=== PATIENT | female | born 1945 | race Caucasian/White ===

== ENCOUNTER 2016-05-18 19:07 | Inpatient (IN) | payer MEDICARE, OTHER ==
[~2016-05-18] VITALS: Ht 157.5 cm; Wt 35.8 kg
[~2016-05-18 19:07] MED LIST: ALBU2.5V5 NEB; ASPI325T4 PO; ASPI81TA9 PO; BUDE10.2 IH; CALC1TAB75 PO; FERR134T PO; FERR325T31 PO; HYDR-2762 PO; LEVO250T25 PO; MULT-60 PO; POTA10TA12 PO; PRED20TA PO; TIOT18CA IH; VENTOLIN HFA18 GM INH
[2016-05-18] MEDS ORDERED: methylPREDNISolone SOD SUCC PF 125 MG/2 ML VIAL. IV ONE (19:45)
[2016-05-18] MEDS ORDERED: ALBUTEROL SULFATE 2.5 MG/3 ML NEBU. NEB ONE (20:00)
--- NOTE | 2016-05-18 20:03 | PHYS DOC ---
Past Medical History Past Medical History: COPD Additional Past Medical Histor: OSTEOPOROSIS, EMPHYSEMA, Past Surgical History: Other Additional Past Surgical Histo: HIP FRACTURE, ANURYSM COILS, Alcohol Use: None Drug Use: Opiates Adult General Chief Complaint Chief Complaint: LOWER BACK PAIN OR INJURY HPI HPI Patient is a 71 year old female presents with back pain after reaching over to get something out of the fridge yesterday. Reports she felt a pop and then pain started. Denies fall, numbness, tingling, incontinence, focal weakness, or deficits. Has been taking her Hydrocodone 7.5mg at home with moderate relief but is concerned because not getting better. Review of Systems Review of Systems Constitutional: Denies fever or chills Eyes: Denies change in visual acuity, redness, or eye pain [] HENT: Denies nasal congestion or sore throat Respiratory: Denies new cough or shortness of breath. Reports new wheezing over last few days. Cardiovascular: No additional information not addressed in HPI GI: Denies abdominal pain, nausea, vomiting, bloody stools or diarrhea : Denies dysuria or hematuria Musculoskeletal: Mid and low back pain for 2-3 days Integument: Denies rash or skin lesions Neurologic: Denies headache, focal weakness or sensory changes Endocrine: Denies polyuria or polydipsia [] Current Medications Current Medications Current Medications Medications (Trade) Dose Ordered Sig/Carlos Start Time Stop Time Status Last Admin Dose Admin Acetaminophen/ Hydrocodone Bitart (Lortab 7.5/325) 1 tab 1X ONCE 05/18/16 20:45 05/18/16 20:46 DC 05/18/16 20:45 1 TAB Albuterol Sulfate (Ventolin Neb Soln) 2.5 mg 1X ONCE 05/18/16 20:00 05/18/16 20:01 DC 05/18/16 20:25 2.5 MG Fentanyl Citrate (Fentanyl 2ml Vial) 25 mcg 1X ONCE 05/18/16 21:30 05/18/16 21:31 DC 05/18/16 21:12 25 MCG Info (Do NOT chart on this entry -- for MONITORING) 1 each PRN DAILY PRN 05/18/16 21:15 05/19/16 13:53 DC Iohexol (Omnipaque 300 Mg/ml) 75 ml 1X ONCE 05/18/16 21:30 05/18/16 21:31 DC 05/18/16 22:00 75 ML Methylprednisolone Sodium Succinate (Solu-Medrol 125mg Vial) 125 mg 1X ONCE 05/18/16 19:45 05/18/16 19:49 DC 05/18/16 19:45 125 MG Allergies Allergies Physical Exam Physical Exam Constitutional: Frail, thin, and in mild distress. HENT: Normocephalic, atraumatic, bilateral external ears normal, oropharynx moist, no oral exudates, nose normal. [] Eyes: PERRLA, EOMI, conjunctiva normal, no discharge. [] Neck: Normal range of motion, no tenderness, supple, no stridor. Cardiovascular:Heart rate regular rhythm, tachycardia, no murmur Lungs & Thorax: Inspiratory wheezes throughout, accessory muscle use. Abdomen: Bowel sounds normal, soft, no tenderness, no masses, no pulsatile masses. Skin: Warm, dry, no erythema, no rash. Back: Midline tenderness thoracic and lumber Extremities: No tenderness, no cyanosis, no clubbing, ROM intact, no edema. Neurologic: Alert and oriented X 3, normal motor function, normal sensory function, no focal deficits noted. Psychologic: Affect normal, judgement normal, mood normal. Current Patient Data Vital Signs Vital Signs Date Time Temp Pulse Resp B/P Pulse Ox O2 Delivery O2 Flow Rate FiO2 05/18/16 23:02 124 28 171/81 97 Nasal Cannula 2.5 05/18/16 19:20 98.1 98.1 Lab Values Laboratory Tests Test 05/18/16 20:07 05/18/16 20:30 White Blood Count 13.1x10^3/uL (4.0-11.0) H Red Blood Count 4.12x10^6/uL (3.50-5.40) Hemoglobin 10.5g/dL (12.0-15.5) L Hematocrit 33.3% (36.0-47.0) L Mean Corpuscular Volume 81fL (79-100) Mean Corpuscular Hemoglobin 25pg (25-35) Mean Corpuscular Hemoglobin Concent 32g/dL (31-37) Red Cell Distribution Width 16.2% (11.5-14.5) H Platelet Count 618x10^3/uL (140-400) H Neutrophils (%) (Auto) 86% (31-73) H Lymphocytes (%) (Auto) 6% (24-48) L Monocytes (%) (Auto) 7% (0-9) Eosinophils (%) (Auto) 0% (0-3) Basophils (%) (Auto) 1% (0-3) Neutrophils # (Auto) 11.3x10^3uL (1.8-7.7) H Lymphocytes # (Auto) 0.8x10^3/uL (1.0-4.8) L Monocytes # (Auto) 1.0x10^3/uL (0.0-1.1) Eosinophils # (Auto) 0.0x10^3/uL (0.0-0.7) Basophils # (Auto) 0.1x10^3/uL (0.0-0.2) Segmented Neutrophils % 91% (35-66) H Lymphocytes % 4% (24-48) L Monocytes % 1% (0-10) Basophils % 2% (0-3) Metamyelocytes % 1% (0-0) H Myelocytes % 1% (0-0) H Platelet Estimate Increased (ADEQUATE) Polychromasia Slight Hypochromasia Slight Anisocytosis Slight Sodium Level 141mmol/L (136-145) Potassium Level 3.9mmol/L (3.5-5.1) Chloride Level 98mmol/L (98-107) Carbon Dioxide Level 35mmol/L (21-32) H Anion Gap 8 (6-14) Blood Urea Nitrogen 17mg/dL (7-20) Creatinine 0.5mg/dL (0.6-1.0) L Estimated GFR (Cockcroft-Gault) 122.3 BUN/Creatinine Ratio 34 (6-20) H Glucose Level 118mg/dL (70-99) H Calcium Level 9.7mg/dL (8.5-10.1) Total Bilirubin 0.3mg/dL (0.2-1.0) Aspartate Amino Transferase (AST) 22U/L (15-37) Alanine Aminotransferase (ALT) 21U/L (14-59) Alkaline Phosphatase 98U/L (46-116) Creatine Kinase 57U/L (26-192) Creatine Kinase MB (Mass) 2.0ng/mL (0.0-3.6) Creatine Kinase MB Relative Index % (0-4) Troponin I Quantitative < 0.017ng/mL (0.000-0.055) JT-Die-K-Type Natriuretic Peptide 1171pg/mL (0-124) H Total Protein 8.0g/dL (6.4-8.2) Albumin 3.6g/dL (3.4-5.0) Albumin/Globulin Ratio 0.8 (1.0-1.7) L Influenza Type A Antigen Negative (NEGATIVE) Influenza Type B Antigen Negative (NEGATIVE) D-Dimer (Sirena) 2.31ug/mlFEU (0.00-0.50) H Laboratory Tests 05/18/16 20:07 Laboratory Tests 05/18/16 20:07 EKG EKG [] Radiology/Procedures Radiology/Procedures [] Impressions: 1. COPD Exacerbation 2. Acute Compression Fracture L2 Course & Med Decision Making Course & Med Decision Making Pertinent Labs and Imaging studies reviewed. (See chart for details) 194-Patient wheezing on exam. On her home O2 at 3LNC with O2 Sat 97%, HR 120' s. Denies any shortness of air, chest pain. Reports she just finished steroids and antibiotic that her doctor put her on a few weeks ago for her lungs but unable to verbalize diagnosis at that time. Informed patient of plan of care that moving to new room out of [facility] for further investigation of wheezing, tachycardia Patient agreed with plan of care. Further evaluation revealed WBC elevated at 13 wihtout bandemia, Chest Xray sowed findings consistent with COPD and did not show pneumonia. D Dimer elevated, CT Chest negative for PE. Patient given IV Solumedrol and nebulizer and continues to have wheezes, accessory muscle use, and heart rate continues to be elevated 110-120. CT of thoracic and lumber revealed acute compression fracture of L2. Patient received pain medication and comfortable at this time. Spoke with Dr. Bueno regarding admission for COPD exacerbation, patient accepted and IV antibiotics will be initiated per her request. No recent hospitalizations or procedures, will cover for CAP and continue nebs, steroids, and monitoring. Dragon Disclaimer Dragon Disclaimer This electronic medical record was generated, in whole or in part, using a voice recognition dictation system. Departure Departure Impression: Primary Impression: COPD exacerbation Additional Impression: Compression fracture of L2 lumbar vertebra Disposition: ADMITTED INPATIENT Admitting Physician: Tanesha Bueno Condition: STABLE Referrals: TRICIA PERRY MD (PCP) Scripts Doxycycline Monohydrate 100 Mg Capsule1 Cap PO BID #20 CAP Prov:TRICIA PERRY MD 05/19/16 Prednisone 50 Mg Afnoxn33 Mg PO DAILY #8 TAB Prov:TRICIA PERRY MD 05/19/16 Problem Qualifiers Additional Impression: Compression fracture of L2 lumbar vertebra Encounter type: initial encounter Fracture type: closed Qualified Code: S32.020A - Wedge compression fracture of second lumbar vertebra, initial encounter for closed fracture TROY ISAAC APRN May 18, 2016 20:03
[2016-05-18 20:22] LABS: BASO # 0.1 x10^3/uL (0.0-0.2); BASO % 1 % (0-3); EOS % 0 % (0-3); HEMATOCRIT 33.3 % (36.0-47.0); HEMOGLOBIN 10.5 g/dL (12.0-15.5); LYMPH # 0.8 x10^3/uL (1.0-4.8); LYMPH % 6 % (24-48); MEAN CORPUSCULAR HEMOGLOBIN 25 pg (25-35); MEAN CORPUSCULAR HGB CONC 32 g/dL (31-37); MEAN CORPUSCULAR VOLUME 81 fL (79-100); MONO % 7 % (0-9); NEUT % 86 % (31-73); PLATELET COUNT 618 x10^3/uL (140-400); RED BLOOD COUNT 4.12 x10^6/uL (3.50-5.40); RED CELL DISTRIBUTION WIDTH 16.2 % (11.5-14.5); WHITE BLOOD COUNT 13.1 x10^3/uL (4.0-11.0)
[2016-05-18 20:24] LABS: CALCIUM 9.7 mg/dL (8.5-10.1); CREATININE 0.5 mg/dL (0.6-1.0); GFR 122.3; POTASSIUM 3.9 mmol/L (3.5-5.1)
[2016-05-18 20:30] LABS: ALBUMIN 3.6 g/dL (3.4-5.0); ALBUMIN/GLOBULIN RATIO 0.8 (1.0-1.7); TOTAL BILIRUBIN 0.3 mg/dL (0.2-1.0)
[2016-05-18 20:32] LABS: OBC FLU VALID
[2016-05-18 20:38] LABS: CREATINE KINASE 57 U/L (26-192)
[2016-05-18] MEDS ORDERED: HYDROCODONE/APAP 7.5/325MG TABLET. PO ONE (20:45)
[2016-05-18 21:00] LABS: % BASOS 2 % (0-3); ANISOCYTOSIS SLIGHT; HYPOCHROMIA SLIGHT; PLT ESTIMATE INCREASED (ADEQUATE); POLYCHROMASIA SLIGHT
[2016-05-18] MEDS ORDERED: CONTRAST GIVEN MC PRN (21:15)
[2016-05-18] MEDS ORDERED: FENTANYL PF 100 MCG/2 ML VIAL. IV ONE ×2 (21:30→23:30)
[2016-05-18] MEDS ORDERED: IOHEXOL 300 MG/ML 75 ML VIAL IV ONE (21:30)
--- NOTE | 2016-05-18 21:42 | RAD ---
PROCEDURE CT scan of the thoracic and lumbar spine without contrast 05/18/2016 HISTORY Severe mid and low back pain. TECHNIQUE Unenhanced contiguous 0.625 millimeter axial sections were obtained through the thoracic and lumbar spine. 3 millimeter reconstructed sagittal, axial and coronal images were obtained. One or more of the following individualized dose reduction techniques were utilized for this study: 1. Automated exposure control. 2. Adjustment of the mA and/or kV according to patient size. 3. Use of iterative reconstruction technique. FINDINGS Sagittal and coronal reconstructed images demonstrate mild S-shaped curvature of the thoracolumbar spine. There is increased kyphosis of the thoracic spine. Diffuse osteopenia of the visualized bony structures is noted. Old compression deformity of the superior endplate of the T11 vertebral body and the inferior endplate of the T12 vertebral body is seen. No retropulsion of bone fragments into the central spinal canal is seen. No acute fracture or subluxation of the thoracic vertebrae is seen. Degenerative changes consisting of vertebral endplate sclerosis and minimal to mild anterior and vertebral body osteophyte formation are seen involving the mid and lower thoracic disc spaces. Extensive atherosclerotic calcification of the thoracic aorta and its branches is noted. There is a large hiatal hernia. Severe emphysematous changes are seen involving both lungs. Apical pleural thickening and probable scarring is seen involving right upper lobe. Old appearing compression fracture is seen involving the superior endplate of the L1 vertebral body. No retropulsion of bone fragments into the central spinal canal is seen. An old appearing compression fracture of the L5 vertebral body is seen. No retropulsion of bone fragments is noted. An acute compression fracture is seen involving the L2 vertebral body. This vertebral body has lost approximately 40 percent of its normal height. No retropulsion of bone fragments into the central spinal canal is seen. No additional compression fracture of the lumbar vertebrae is seen. Degenerative changes are seen involving the facet joints of the mid and lower lumbar spine. Atherosclerotic calcification of the abdominal aorta and its branches is noted. IMPRESSION An acute compression fracture is seen involving the L2 vertebral body. No retropulsion of bone fragments into the central spinal canal is seen. Electronically signed by: Tariq Bonds MD (May 18, 2016 21:40:50)
--- NOTE | 2016-05-18 22:22 | RAD ---
PROCEDURE CTA of the chest with contrast (pulmonary embolism protocol) 05/18/2016 HISTORY Shortness of breath and cough with elevated D-dimer. TECHNIQUE After the intravenous administration of 75 cc of Omnipaque 300, contiguous, 0.625 millimeter axial sections were obtained through the chest. 2 millimeter reconstructed axial and 3D MIP sagittal and coronal reconstructed images were obtained. One or more of the following individualized dose reduction techniques were utilized for this study: 1. Automated exposure control. 2. Adjustment of the mA and/or kV according to patient size. 3. Use of iterative reconstruction technique. FINDINGS No filling defect is seen within the major branches of either pulmonary artery. Atherosclerotic calcification of the thoracic aorta is seen. The thoracic aorta is tortuous but tapers normally. The heart is borderline enlarged. There is a large sliding hiatal hernia. Apical pleural thickening and scarring is seen involving the right upper lobe. Severe emphysematous changes are seen involving both lungs. Areas of probable scarring are seen scattered throughout the left upper lobe. No area of consolidation is seen. No pneumothorax or pleural effusion is noted. Calcified granulomas are seen involving both lungs. A 6 millimeter partially calcified granuloma is seen involving the right middle lobe. Several low-attenuation lesions are seen scattered throughout the liver which measure 1 centimeter to 2.5 centimeters in size. They are felt to most likely represent hepatic cysts IMPRESSION There is no CT evidence of pulmonary embolism. Electronically signed by: Tariq Bonds MD (May 18, 2016 22:20:28)
[2016-05-18] MEDS ORDERED: AZITHRMYCN 500MG IVPB FOR OMNI 250 ML IV ONE (23:30)
[2016-05-18] MEDS ORDERED: ALBUTEROL SULFATE 2.5 MG/3 ML NEBU. NEB PRN (23:30)
[2016-05-18] MEDS ORDERED: FENTANYL PF 100 MCG/2 ML VIAL. IV PRN (23:30)
[2016-05-18] MEDS ORDERED: ONDANSETRON PF 4 MG/2 ML VIAL. IV PRN (23:30)
[2016-05-18] MEDS ORDERED: IV NORMAL SALINE 1000ML BAG 1,000 ML IV ONE (23:30)
[2016-05-18] MEDS ORDERED: CEFTRIAXONE 1GM IVPB FOR OMNI 50 ML IV ONE (23:45)
[2016-05-19 01:45] VITALS: BP 143/73
--- NOTE | 2016-05-19 06:34 | EKG ---
[facility] [address] [place] [address] Test Date: 2016-05-18 Test Time: 19:59:53 Pat Name: GURWINDER GOLDSTEIN Department: Room: 536 1 Gender: F Non Morse Intercept Technician: : 1945 Requested By: TROY ISAAC Order Number: [id number] Reading MD: Vidal Cason Measurements Intervals [place] Rate: 126 P: 76 [place]: 98 QRS: 44 QRSD: 88 T: 78 QT: 324 QTc: 470 Interpretive Statements SINUS TACHYCARDIA RIGHT ATRIAL ENLARGEMENT NONSPECIFIC ST-T WAVE CHANGES. 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
[2016-05-19 07:00] VITALS: BP 148/82
--- NOTE | 2016-05-19 07:54 | RAD ---
Exam performed: Single view chest. History: Shortness of breath today, history of COPD. Date of service: 05/18/16. Comparison: 01/11/15. Single AP upright portable view chest findings: Heart size is within limits of normal. Ectatic tortuous aorta with atheromatous calcification of the aortic knob. There is a hiatal hernia. Lungs are well expanded and clear. Prominent interstitial markings are seen in both lungs similar to previous study consistent with fibrotic changes. No focal infiltrates, effusion or pneumothorax seen. Impression: Stable and chronic fibrotic changes. No acute findings noted
--- NOTE | 2016-05-19 10:08 | PDOC ---
Provider Note Provider Note Pt seen.H&P dictated. #[id number]. pt wanting to go home ,says feels better, will give back brace to her for L2 compression fracture TRICIA PERRY MD May 19, 2016 10:08
[2016-05-19] MEDS ORDERED: DOXY100C14 PO (10:10)
[2016-05-19] MEDS ORDERED: PRED50TA PO (10:10)
[2016-05-19 11:00] VITALS: BP 146/79
[2016-05-19] MEDS ORDERED: PREDNISONE 20 MG TABLET PO SCH (11:00)
[2016-05-19] MEDS ORDERED: ASPIRIN ENTERIC COATED 81 MG TABLET.DR. PO SCH (11:00)
[2016-05-19] MEDS ORDERED: FERROUS SULFATE 325 MG TABLET PO SCH (11:00)
--- NOTE | 2016-05-19 12:19 | HP ---
ADMIT DATE: 05/19/2016 REASON FOR ADMISSION TO THE HOSPITAL: Chronic obstructive pulmonary disease with exacerbation, new L2 compression fracture. HISTORY OF PRESENT ILLNESS: The patient is a 71-year-old female, the patient known to me. She has a history of severe COPD. She is on chronic oxygen use at home and nebulizer. She came with shortness of breath and wheezing, came to the Emergency Room, had a D-dimer was slightly elevated at 2.1. CT angiogram was negative for PE. Chest x-ray negative for pneumonia, white count was elevated to 13 and the patient was admitted, was given IV Solu-Medrol, Zithromax and Rocephin. The patient says she is feeling better. She is anxious to go home. She denies any pain. The patient had a CT of the lumbar and thoracic spine last night shows L2 compression fracture which is new. The patient denies any pain. She noticed some pain couple of days ago in low back. PAST MEDICAL HISTORY: Anemia, osteoporosis, emphysema, COPD, continues to smoke, had a history of bone marrow biopsy, EGD, colonoscopy for anemia. PAST SURGICAL HISTORY: Had a fracture, had a brain aneurysm, had a coil placed at the . ALLERGIES: SHE CANNOT TAKE MRI BECAUSE OF THE BRAIN COIL FOR THE ANEURYSM, OTHERWISE NO ALLERGIES TO MEDICATIONS. MEDICATIONS AT HOME: She is on Lortab 5/325 four times daily, oxygen 2-3 liters daily. She is on Symbicort 2 puffs twice a day, Spiriva 1 daily, Ventolin 2 puffs 4 times daily, prednisone on and off, calcium, vitamin D and she was supposed to be on Boniva, but she refuses. PERSONAL HISTORY: Smokes for all her life, most of the life, she started 22, she still smokes. Denies alcohol or street drugs. SOCIAL HISTORY: The patient ambulates with the walker and oxygen and she lives with her daughter. FAMILY HISTORY: Unremarkable. PHYSICAL EXAMINATION: GENERAL: The patient looks frail and sick. VITAL SIGNS: Temperature 98, pulse 118, respirations 20, blood pressure is 133/73, 96% on 2.5 liters. HEENT: Head is atraumatic. Pupils, equal. Oral cavity: Dentures. NECK: Supple. CHEST: COPD pattern. CARDIOVASCULAR: S1, S2. No murmurs. LUNGS: Diminished breath sounds, occasional wheezing. The patient has a kyphosis of the spine. ABDOMEN: Soft, no mass palpable. EXTERNAL GENITALIA: No [place]. RECTAL: Deferred. EXTREMITIES: No calf tenderness, no edema. Pulses 1+. LABORATORY DATA: Shows a white count of 13, hemoglobin 10, platelets 618. Electrolytes show sodium 141, potassium 4.0, chloride 98, bicarbonate 35, BUN 7, creatinine 0.5, glucose 118. LFT was normal. BNP 1171, albumin 3.6, troponin was negative. D-dimer was 2.3. Influenza A and B was negative. CT angiogram of the chest was negative for pulmonary embolism. Chest x-ray, chronic fibrotic changes. X-ray of the lumbar spine shows L2 compression fracture. FINAL IMPRESSION: 1. Chronic obstructive pulmonary disease with acute exacerbation. 2. Acute L2 compression fracture. 3. Osteoporosis. 4. Kyphosis. 5. Chronic obstructive pulmonary disease with hypoxia, on oxygen. 6. Chronic smoker. 7. Protein-calorie malnutrition, moderate. 8. Smoking addiction. PLAN: At this time, was admitted to the hospital. The patient is anxious to go home and she was given prescription for doxycycline 100 mg twice daily, prednisone tapering doses and she has oxygen breathing machine at home and follow up in the office. The patient is up to date on flu and pneumonia shots, again smoking counseling was done. TRICIA PERRY MD DR: IVETTE/brandon JOB#: [id number] / [id number] DEBORA
[2016-05-19] MEDS ORDERED: HYDROCODONE/APAP 7.5/325MG TABLET. PO SCH (13:00)
[2016-05-19] MEDS ORDERED: ALBUTEROL SULFATE 2.5 MG/3 ML NEBU. NEB SCH (13:00)
--- NOTE | 2016-05-20 01:13 | ACF ---
Admission Forms Criteria COPD Clinical Indications for Admission to Inpatient Care (Place 'X' for any and all applicable criteria): Admission is indicated for ANY ONE of the following (1)(2)(3): [ ]I. Acute exacerbation by high-risk comorbidity (e.g., pneumonia, dysrhythmia, heart failure, pleural effusion, pneumothorax) or severe underlying COPD (e.g., steroid dependent) [ ]II. Inpatient admission required rather than observation care (see Chronic Obstructive Pulmonary Disease: Observation Care) because of ANY ONE of the following: [ ]a) New or pre-existing signs or symptoms of COPD (eg, dyspnea or Tachypnea at rest or with minimal activity) that persist despite outpatient and observation care treatment [ ]b) New-onset hypoxemia (room air SaO2 less than 90%, PO2 less than 60 mm Hg (8.0 kPa)) that persists despite outpatient and observation care treatment [ ]c) Worsening of pre-existing hypoxemia (eg, new or increased requirement for supplemental oxygen to maintain oxygenation at baseline level) that persists despite outpatient and observation care treatment, with oxygen treatment needs performable only in acute inpatient setting [ ]d) Hypercarbia (PCO2 greater than 40 mm Hg (5.3 kPa))-induced respiratory acidosis (pH less than 7.35) that persists despite outpatient and observation care treatment [ ]e) Supplemental oxygen or respiratory treatments for over 24 hours that are performable only in acute inpatient setting [ ]f) Chest tube placement with active evacuation (e.g., suction, drainage) (5) [ ]g) Other condition, treatment or monitoring requiring inpatient admission [ ]III. Planned invasive surgical or diagnostic procedures requiring acute- care hospitalization [ ]IV. Acute respiratory failure (e.g., uncompensated hypercarbia, severe hypoxemia) [X]V. Severe comorbid condition (e.g., severe steroid myopathy, acute vertebral fracture) that has acutely worsened pulmonary function [ ]. Confusion state, lethargy, obtundation, stupor or coma Extended stay beyond goal length of stay may be needed for (31)(32): [ ]a ) Respiratory Failure. [ ]b) Severe or persisting hypoxemia or hypercarbia [ ]c) Severe or persistent dyspnea [ ]d) Comorbidities (e.g. chronic heart failure, atrial fibrillation with rapid response, pneumonia) [ ]e) Malnutrition The original [facility] content created by [facility] has been revised. The portions of the content which have been revised are identified through the use of italic text or in bold, and [facility] has neither reviewed nor approved the modified material. All other unmodified content is copyright [facility]. Please see references footnoted in the original [facility] edition 2016 Admission Criteria Met?: Yes TAMMY HASSAN May 20, 2016 01:13
--- NOTE | 2016-05-22 10:16 | PDOC ---
Provider Note Provider Note Discharge summary dictated. #[id number] TRICIA PERRY MD May 22, 2016 10:15
--- NOTE | 2016-05-22 20:48 | DS ---
DATE OF DISCHARGE: 05/19/2016 REASON FOR ADMISSION TO THE HOSPITAL: COPD with acute exacerbation. CONSULTATIONS: None. PROCEDURES DONE: None. HOSPITAL COURSE: The patient is a 71-year-old female with chronic COPD on home oxygen, continues to smoke and also osteoporosis. She came with shortness of breath with wheezing, was given IV Solu-Medrol, antibiotics and the patient was feeling better. She went to go home the next day, the patient was discharged at patient's request with doxycycline and oral prednisone. FINAL DIAGNOSES: 1. Chronic obstructive pulmonary disease with exacerbation. 2. Chronic chronic obstructive pulmonary disease with hypoxia, home oxygen. 3. Chronic osteoporosis. 4. Tobacco addiction and the patient was discharged. Tobacco counseling was done and the patient was discharged on oral antibiotics and steroids, she has oxygen at home and breathing machine at home. The patient was discharged on patient's request. TRICIA PERRY MD DR: IVETTE/brandon JOB#: [id number] / [id number] DEB[place]A
== END 2016-05-19 13:45 | disposition home or self-care (01) | DRG 543 ==
LOC: ER 19:07 → 5 NORTH 23:28
PROVIDERS: ADMIT Internal Medicine; ATTEND Internal Medicine
DX: M80.08XA Age-related osteoporosis with current pathological fracture, vertebra(e), initial encounter for fracture (principal); J44.1 Chronic obstructive pulmonary disease with (acute) exacerbation; E44.0 Moderate protein-calorie malnutrition; Z68.1 Body mass index [BMI] 19.9 or less, adult; J96.10 Chronic respiratory failure, unspecified whether with hypoxia or hypercapnia; M81.0 Age-related osteoporosis without current pathological fracture; F17.200 Nicotine dependence, unspecified, uncomplicated; Z99.81 Dependence on supplemental oxygen; Z71.6 Tobacco abuse counseling; M40.209 Unspecified kyphosis, site unspecified
CPT/HCPCS: 36415; 71010; 71275; 72128; 72131; 80053; 82553; 83880; 84484; 85007; 85027; 85379; 87040; 87804; 93005; 94250; 94640; 94760; 96365; 96375; 96376; J0690; J2930; J3010; J7030; J7512; Q9967; 99285-25

== ENCOUNTER 2016-06-11 22:02 | Inpatient (IN) | payer MEDICARE ==
[~2016-06-11] VITALS: Ht 157.5 cm; Wt 31.8 kg
[~2016-06-11 22:02] MED LIST changes: +DOXY100C14 PO; +PRED50TA PO
--- NOTE | 2016-06-11 22:38 | ED.ADGEN ---
Past Medical History Past Medical History: COPD Additional Past Medical Histor: OSTEOPOROSIS, EMPHYSEMA, L2 FX Past Surgical History: Other Additional Past Surgical Histo: HIP FRACTURE, ANURYSM COILS, Alcohol Use: None Drug Use: Opiates Adult General Chief Complaint Chief Complaint: MULTIPLE COMPLAINTS HPI HPI Patient is a 71 year old woman, history of COPD on 2 L nasal cannula as needed , osteoporosis, history of L2 fracture with chronic back pain, who presents to the emergency department with her daughter with multiple complaints. Patient's has been using her oxygen all day today, which is uncommon, has been experiencing cough, although the patient states it's no more than her usual cough. Pressure of white sputum. Denies fevers at home, complaining of some chills. Denies any chest pain, states he has had increased work of breathing today, denies any abdominal pain, any nausea, vomiting, diarrhea. Normal appetite per report, denies any urinary complaints. Patient's daughter states that the patient has been acting "out of her head". States that her patient was "pulling her oxygen tubing trying to pull it apart stating "I want to open these chips". She was also saying that "my cat is pooping from its face"." At this time the patient is alert and oriented 4 in the emergency department. Positive for sick contacts among her grandson who had a viral illness recently. No recent travel or surgery, history of DVT or PE. Patient has been compliant with all medications per her report and her daughter's. No weakness, numbness or tingling, no headache, no vision changes, no abnormalities in speech or cognition aside from reported by patient's daughter. Patient with tachycardia, heart rate in the 1 teens, oxygen saturation in the mid 90s on 2 L nasal cannula , respiratory rate is 22, unlabored, speaking full sentences. Patient is afebrile in the ED. Review of Systems Review of Systems Constitutional: Denies fevers, complaining of chills. Eyes: Denies change in visual acuity. [] HENT: No nasal congestion, complaining of sore throat. Respiratory: Cough, productive of white sputum, shortness of breath. Cardiovascular: Denies chest pain or edema. [] GI: Denies abdominal pain, nausea, vomiting, bloody stools or diarrhea. [] : Denies dysuria. [] Musculoskeletal: Denies back pain or joint pain. [] Integument: Denies rash. [] Neurologic: Denies headache, focal weakness or sensory changes. [Altered mental status.] Endocrine: Denies polyuria or polydipsia. [] Lymphatic: Denies swollen glands. [] Psychiatric: Denies depression or anxiety. [] Current Medications Current Medications Current Medications Medications (Trade) Dose Ordered Sig/Carlos Start Time Stop Time Status Last Admin Dose Admin Albuterol/ Ipratropium (Duoneb) 3 ml 1X ONCE 06/11/16 23:30 06/11/16 23:31 DC 06/11/16 23:26 3 ML Methylprednisolone Sodium Succinate (Solu-Medrol 125mg Vial) 125 mg 1X ONCE 06/11/16 23:30 06/11/16 23:31 DC 06/11/16 23:32 125 MG Vancomycin HCl (Vanco Per Pharmacy) 1 each PRN DAILY PRN 06/11/16 23:15 UNV Allergies Allergies Allergies Coded Allergies Type Severity Reaction Last Updated Verified No Known Medication Allergies Allergy Unknown 05/19/16 Yes Uncoded Allergies Type Severity Reaction Last Updated Verified MRI Adverse Reaction Severe PT HAS ANEURYSM COIL 05/19/16 Physical Exam Physical Exam Constitutional: Well developed, well nourished, no acute distress, non-toxic appearance. [] Nasal cannula in place. HENT: Normocephalic, atraumatic, bilateral external ears normal, oropharynx moist, no oral exudates, nose normal. [] Eyes: PERRLA, EOMI, conjunctiva normal, no discharge. [] Neck: Normal range of motion, no tenderness, supple, no stridor. [] Cardiovascular: Tachycardic, S1, S2, no rubs or gallops, soft heart sounds. Lungs & Thorax: Patient was extremely diminished breath sounds throughout, no wheezing, rhonchi or rales identified, nasal cannula is in place, no chest wall crepitus or tenderness, patient is extremely kyphotic. [] Abdomen: Bowel sounds normal, soft, no rebound, rigidity, no guarding, no tenderness, no masses, no pulsatile masses. [] Skin: Warm, dry, no erythema, no rash. [] Back: No tenderness, no CVA tenderness. [] Extremities: No tenderness, no cyanosis, no clubbing, ROM intact, no edema. Muscle wasting. Negative Homans sign. [] Neurologic: Alert and oriented X 3, normal motor function, normal sensory function, no focal deficits noted. [] Psychologic: Affect normal, judgement normal, mood normal. [] Current Patient Data Vital Signs Vital Signs Date Time Temp Pulse Resp B/P Pulse Ox O2 Delivery O2 Flow Rate FiO2 06/11/16 23:28 95 Nasal Cannula 2.0 06/11/16 23:19 110 31 113/93 06/11/16 22:05 98.0 98.0 Lab Values Laboratory Tests Test 06/11/16 22:20 06/11/16 22:30 O2 Saturation 90% (92-99) L Arterial Blood pH 7.49 (7.35-7.45) H Arterial Blood pCO2 at Patient Temp 57mmHg (35-46) H Arterial Blood pO2 at Patient Temp 60mmHg (65-108) L Arterial Blood HCO3 43mmol/L (21-28) H Arterial Blood Base Excess 18mmol/L (-3-3) H FiO2 28.0 White Blood Count 15.4x10^3/uL (4.0-11.0) H Red Blood Count 3.92x10^6/uL (3.50-5.40) Hemoglobin 8.4g/dL (12.0-15.5) L Hematocrit 28.8% (36.0-47.0) L Mean Corpuscular Volume 74fL (79-100) L Mean Corpuscular Hemoglobin 22pg (25-35) L Mean Corpuscular Hemoglobin Concent 29g/dL (31-37) L Red Cell Distribution Width 21.0% (11.5-14.5) H Platelet Count 564x10^3/uL (140-400) H Neutrophils (%) (Auto) 81% (31-73) H Lymphocytes (%) (Auto) 8% (24-48) L Monocytes (%) (Auto) 9% (0-9) Eosinophils (%) (Auto) 1% (0-3) Basophils (%) (Auto) 0% (0-3) Neutrophils # (Auto) 12.5x10^3uL (1.8-7.7) H Lymphocytes # (Auto) 1.3x10^3/uL (1.0-4.8) Monocytes # (Auto) 1.5x10^3/uL (0.0-1.1) H Eosinophils # (Auto) 0.1x10^3/uL (0.0-0.7) Basophils # (Auto) 0.0x10^3/uL (0.0-0.2) Platelet Estimate Increased (ADEQUATE) Hypochromasia Mod Poikilocytosis Slight Anisocytosis Mod Microcytosis Slight Prothrombin Time 13.0SEC (11.7-14.0) Prothrombin Time INR 1.0 (0.8-1.1) PTT 31SEC (24-38) Sodium Level 143mmol/L (136-145) Potassium Level 3.2mmol/L (3.5-5.1) L Chloride Level 97mmol/L (98-107) L Carbon Dioxide Level 42mmol/L (21-32) H Anion Gap 4 (6-14) L Blood Urea Nitrogen 14mg/dL (7-20) Creatinine 0.4mg/dL (0.6-1.0) L Estimated GFR (Cockcroft-Gault) 158.3 BUN/Creatinine Ratio 35 (6-20) H Glucose Level 110mg/dL (70-99) H Lactic Acid Level 1.4mmol/L (0.4-2.0) Calcium Level 8.9mg/dL (8.5-10.1) Total Bilirubin 0.2mg/dL (0.2-1.0) Aspartate Amino Transferase (AST) 28U/L (15-37) Alanine Aminotransferase (ALT) 31U/L (14-59) Alkaline Phosphatase 97U/L (46-116) Troponin I Quantitative < 0.017ng/mL (0.000-0.055) TL-Izg-P-Type Natriuretic Peptide 2337pg/mL (0-124) H Total Protein 6.7g/dL (6.4-8.2) Albumin 3.0g/dL (3.4-5.0) L Albumin/Globulin Ratio 0.8 (1.0-1.7) L Laboratory Tests 06/11/16 22:30 Laboratory Tests 06/11/16 22:30 EKG EKG EC: Sinus tachycardia, heart rate 109 bpm, upright axis, QTC of 465, CA of 112, QRS of 80, patient with contour abnormalities noted in the lateral leads , abnormal ECG, no ST elevations or depressions, does not meet STEMI criteria. As interpreted by me. Radiology/Procedures Radiology/Procedures [] [facility] [address] [place] [address] IMAGING REPORT Signed PATIENT: GURWINDER GOLDSTEIN ACCOUNT: [id number] : 1945 LOCATION: ER AGE: 71 SEX: F EXAM STATUS: REG ER ORD. PHYSICIAN: DENISE CARLISLE DO REASON: AMS PROCEDURE: HEAD WO CONTRAST Examination: CT head without contrast History: History of altered mental status. COMPARISON None available. TECHNIQUE Axial CT images of the head was performed without contrast. Exposure: One or more of the following dose reduction technique were utilized for this examination: 1. Automated exposure control. 2.Adjustment of MA and /or KV according to patient size. 3. Use of iterative reconstruction technique. Findings : There is no evidence of midline shift. Mild bilateral periventricular white matter hypodensities likely chronic small vessel ischemic disease. There is diffuse streak artifact identified due to aneurysmal coiling changes which limits evaluation. The basal cisterns are not effaced. No evidence of gross intracranial bleed or extra-axial fluid collection visualized. There is opacification of the left maxillary sinus likely due to sinus disease. IMPRESSION - Examination limited due to diffuse streak artifact from aneurysmal coiling changes. Grossly no acute intracranial findings. - Opacification identified in the left maxillary sinus likely due to sinus disease. Electronically signed by: Emmnauel Cleveland (Jun 11, 2016 23:19:23) DICTATED and SIGNED BY: EMMANUEL CLEVELAND MD DATE: 06/11/16 1328 CC: DENISE CARLISLE DO; MOOSE PERRY MD ~ Impressions: Chest x-ray: One view: Hyperinflation, with normal cardiac silhouette, no effusions noted, patient noted to have infiltrates concerning for pneumonia in the left upper and lower lobe, no pneumothorax. No bony abnormalities. As interpreted by me. Course & Med Decision Making Course & Med Decision Making Pertinent Labs and Imaging studies reviewed. (See chart for details) Patient with cough, subjective fever at home, increased oxygen usage, noted have leukocytosis, with concern for left lobe pneumonia on x-ray. CT of the head is unremarkable, no evidence of infection in urine, no other significant laboratory abnormalities identified. Discussed that the patient's underlying symptoms could be consistent with infection causing her confusion, although she is alert this time. We'll continue to monitor for discussion with daughter. ABG does not reveal evidence of significant acidosis or explanation for the patient' s previous symptoms. She is experiencing no increased work of breathing or other concerning findings at this time. Patient has been admitted to the hospital in the past several months, therefore will treat as healthcare associated pneumonia, lactic is within normal limits. Heart rate is improved, although she remains mildly tachycardic, will continue to monitor closely. Patient states that she is feeling better after receiving breathing treatment and steroids in the ED, IV emetics are infusing. I did have a conversation regarding CODE STATUS and healthcare proxy with patient and daughter at bedside , patient's daughter is the designated proxy, patient has expressed that she would not want to be on life support, and would not desire CPR or intubation. At this time, patient oxygen saturation is in the upper 90s on 3 L nasal cannula , heart rate is 90s to low 100s, blood pressures remain stable. Patient is agreeable with plan for admission to the hospital for monitoring, consultation with pulmonary critical care. Findings as above discussed with Dr. Bueno, call for the patient's primary care provider, patient accepted to his service as a full admission to the medical telemetry floor with pulmonary support, consultation, antibiotic coverage and monitoring as stated. Bridge orders entered per discussion. Patient transferred to the floor without issue. Dragon Disclaimer Dragon Disclaimer This electronic medical record was generated, in whole or in part, using a voice recognition dictation system. Departure Impression: Primary Impression: HCAP (healthcare-associated pneumonia) Additional Impressions: COPD exacerbation Altered mental status Disposition: ADMITTED INPATIENT Admitting Physician: Moose Perry Condition: IMPROVED Problem Qualifiers Additional Impressions: Altered mental status Altered mental status type: unspecified Qualified Code: R41.82 - Altered mental status, unspecified DENISE CARLISLE DO Jun 11, 2016 22:38
[2016-06-11 22:48] LABS: BASO % 0 % (0-3); EOS % 1 % (0-3); HEMATOCRIT 28.8 % (36.0-47.0); HEMOGLOBIN 8.4 g/dL (12.0-15.5); LYMPH # 1.3 x10^3/uL (1.0-4.8); LYMPH % 8 % (24-48); MEAN CORPUSCULAR HEMOGLOBIN 22 pg (25-35); MEAN CORPUSCULAR HGB CONC 29 g/dL (31-37); MEAN CORPUSCULAR VOLUME 74 fL (79-100); MONO % 9 % (0-9); NEUT % 81 % (31-73); PLATELET COUNT 564 x10^3/uL (140-400); RED BLOOD COUNT 3.92 x10^6/uL (3.50-5.40); WHITE BLOOD COUNT 15.4 x10^3/uL (4.0-11.0)
[2016-06-11 22:53] LABS: HCO3 ABG 43 mmol/L (21-28); PCO2 ABG 57 mmHg (35-46); PO2 ABG 60 mmHg (65-108); SAT O2 ABG 90 % (92-99)
[2016-06-11 22:54] LABS: PH ABG 7.49 (7.35-7.45)
[2016-06-11 22:58] LABS: CALCIUM 8.9 mg/dL (8.5-10.1); CREATININE 0.4 mg/dL (0.6-1.0); GFR 158.3; POTASSIUM 3.2 mmol/L (3.5-5.1)
[2016-06-11 23:04] LABS: ALBUMIN/GLOBULIN RATIO 0.8 (1.0-1.7); TOTAL BILIRUBIN 0.2 mg/dL (0.2-1.0); TOTAL PROTEIN 6.7 g/dL (6.4-8.2)
[2016-06-11 23:08] LABS: ANISOCYTOSIS MOD; HYPOCHROMIA MOD; MICROCYTOSIS SLIGHT
[2016-06-11 23:09] LABS: PLT ESTIMATE INCREASED (ADEQUATE); POIKILOCYTOSIS SLIGHT
--- NOTE | 2016-06-11 23:21 | RAD ---
Examination: CT head without contrast History: History of altered mental status. COMPARISON None available. TECHNIQUE Axial CT images of the head was performed without contrast. Exposure: One or more of the following dose reduction technique were utilized for this examination: 1. Automated exposure control. 2.Adjustment of MA and /or KV according to patient size. 3. Use of iterative reconstruction technique. Findings : There is no evidence of midline shift. Mild bilateral periventricular white matter hypodensities likely chronic small vessel ischemic disease. There is diffuse streak artifact identified due to aneurysmal coiling changes which limits evaluation. The basal cisterns are not effaced. No evidence of gross intracranial bleed or extra-axial fluid collection visualized. There is opacification of the left maxillary sinus likely due to sinus disease. IMPRESSION - Examination limited due to diffuse streak artifact from aneurysmal coiling changes. Grossly no acute intracranial findings. - Opacification identified in the left maxillary sinus likely due to sinus disease. Electronically signed by: Emmanuel Cleveland (Jun 11, 2016 23:19:23)
[2016-06-11] MEDS ORDERED: methylPREDNISolone SOD SUCC PF 125 MG/2 ML VIAL. IV ONE (23:30)
[2016-06-11] MEDS ORDERED: IPRATRPIUM/ALBUTEROL 0.5/2.5MG 3 ML NEBU. NEB ONE (23:30)
[2016-06-12] VITALS (8 sets, daily range): BP systolic 125–168; BP diastolic 55–97
[2016-06-12] MEDS ORDERED: PIPERACILLIN/TAZOBACTAM 4.5 GM in IV NORMAL SALINE 100ML 100 ML IV SCH ×2
[2016-06-12] MEDS ORDERED: ACETAMINOPHEN 325 MG TABLET. PO PRN (00:30)
[2016-06-12] MEDS ORDERED: ONDANSETRON PF 4 MG/2 ML VIAL. IV PRN (00:30)
[2016-06-12] MEDS: PIPERACILLIN/TAZOBACTAM 2.25 GM in IV NORMAL SALINE 50ML 50 ML IV SCH ×5 (00:44→23:14)
[2016-06-12] MEDS ORDERED: VANCOMYCIN 1 GM in IV NORMAL SALINE 250ML 250 ML IV ONE (01:30)
--- NOTE | 2016-06-12 02:15 | ACF ---
Admit Criteria Forms Admit Criteria Forms Admit Criteria Forms PNEUMONIA, COMMUNITY ACQUIRED Clinical Indications for Admission to Inpatient Care ( Place 'X' for any and all applicable criteria): Admission is indicated for ANY ONE of the following (1)(2)(3): [ ]I. Hypoxemia indicated by ANY ONE of the following: [ ]a) Oxygen saturation less than 90% while breathing room air [ ]b) PO2 less than 60 mm Hg (8.0 kPa) while breathing room air [ ]c) Chronic lung disease with significant deterioration from baseline oxygenation [ ]II. Appropriate diagnostic testing and treatment unavailable in outpatient or recovery facility (eg,testing or infection control measures unavailable(10) [X]III. Moderate-risk or high-risk category patients (Pneumonia Severity Index (PSI) class IV or V, or CURB-65 score of 3 or greater). [ ]IV. Outpatient treatment failure as indicated by ANY ONE of the following(9) : [ ]a) Failure to respond to antibiotic (eg, resistant organism) [ ]b) Clinically significant adverse effects from medication (eg, vomiting) [ ]c) Complications of pneumonia (eg, empyema, bacteremia) [ ]d) Significant worsening of comorbid cond necessitating inpatient care (eg, chronic heart failure) [ ]V. Intermediate-risk category patients (eg, PSI class III or CURB-65 score 2) who do not improve with initial therapy and observation. [ ]. Immunocompromised patients (eg, AIDS, chronic steroid use) at moderate or high risk based on clinical evaluation. [ ]VII. Complicated pleural effusions (eg, exudative, loculated) [ ]VIII.Hemodynamic instability [ ] IX. Altered mental status that is severe or persistent. [ ]X. Dehydration that is severe or persistent. [ ]XI. Bacteremia [ ]XII. Respiratory finding (eg. tachypnea) that do not respond to outpatient or observation care treatment Extended stay beyond goal length of stay may be needed for (20) [ ]a) Unclear diagnosis [ ]b) Pleural disease [ ]c) Severe pneumonia or treatment failure (25 [ ]d) Respiratory failure (anticipate invasive or noninvasive ventilatory support) [ ]e) Abnormal serum electrolytes (serum Na concentration less than 135 mEq/L (mmol/L) (32)(33) [ ]f) Clinically significant comorbid illness (eg, heart failure, atrial fibrillation with rapid heart rate, alcohol withdrawal, renal insufficiency)(34)(35) [ ]g) Comorbid acute exacerbation of COPD(36) [ ]h) Concomitant diagnosis of malignancy that may be associated with malnutrition, immunologic impairment, or bronchial obstruction. [ ]i) Concomitant altered mental status [ ]j) Culture-identified Gram-negative or antibiotic-resistant organism (eg, Pseudomonas, methicillin-resistant Staphylococcus aureus)(30) [ ]k) Healthcare-associated pneumonia The original [employer] content created by [employer] has been revised. The portions of the content which have been revised are identified through the use of italic text or in bold, and [facility] has neither reviewed nor approved the modified material. All other unmodified content is copyright [employer]. Please see references footnoted in the original [employer] edition 2016 ANGELO BORRERO Jun 12, 2016 02:15
[2016-06-12] MEDS: VANCOMYCIN PER PHARMACY MC PRN ×2 (02:49→15:03)
--- NOTE | 2016-06-12 06:20 | EKG ---
[facility] [address] [place] [address] Test Date: 2016-06-11 Test Time: 22:36:41 Pat Name: GURWINDER GOLDSTEIN Department: Room: 528 1 Gender: F Roof Foreman: : 1945 Requested By: DENISE CARLISLE Order Number: [id number] Reading MD: Ninfa Gil Measurements Intervals [place] Rate: 109 P: 90 [place]: 112 QRS: 39 QRSD: 80 T: 77 QT: 344 QTc: 465 Interpretive Statements SINUS TACHYCARDIA BIATRIAL ENLARGEMENT T ABNORMALITY IN HIGH LATERAL LEADS RI6.01 Compared to ECG 05/18/2016 19:59:53 T-wave abnormality now present ST (T wave) deviation no longer present Electronically Signed On 06-12-2016 19:52:48 CDT by Ninfa Gil
[2016-06-12] MEDS ORDERED: IPRATRPIUM/ALBUTEROL 0.5/2.5MG 3 ML NEBU. NEB SCH (08:00)
--- NOTE | 2016-06-12 08:05 | RAD ---
AP chest, 06/11/2016: History: Cough, altered mental status Comparison is made to a study from 05/18/2016. The heart is at the upper limits of normal in size. There is moderate calcific plaquing of the aorta. A moderate-sized hiatal hernia is present. There is emphysema with moderate bilateral pleural/parenchymal scarring. There appears to be mild superimposed infiltrate in the left upper lobe laterally. No pleural fluid or pneumothorax is evident. IMPRESSION: 1. Emphysema with moderate pleural-parenchymal scarring. 2. Mild superimposed left upper lobe infiltrate compatible with pneumonia. 3. Moderate-sized hiatal hernia
[2016-06-12] MEDS: methylPREDNISolone SOD SUCC PF 40 MG/ML VIAL. IV SCH ×2 (09:00→20:41)
[2016-06-12] MEDS ORDERED: ALBUTEROL SULFATE 2.5 MG/3 ML NEBU. NEB PRN (10:00)
--- NOTE | 2016-06-12 10:05 | PDOC ---
Provider Note Provider Note Pt seen.H&P dictated. #[id number] TRICIA PERRY MD Jun 12, 2016 10:05
[2016-06-12] MEDS ORDERED: POTASSIUM CHLORIDE 20 MEQ TABLET.ER. PO ONE (11:00)
[2016-06-12] MEDS: IPRATRPIUM/ALBUTEROL 0.5/2.5MG 3 ML NEBU. NEB SCH ×3 (11:51→19:18)
[2016-06-12] MEDS: BUDESONIDE 0.5 MG/2 ML NEBU. NEB SCH ×2 (11:51→19:18)
[2016-06-12] MEDS: FERROUS SULFATE 325 MG TABLET PO SCH (11:58)
[2016-06-12] MEDS: ASPIRIN ENTERIC COATED 81 MG TABLET.DR. PO SCH (11:58)
--- NOTE | 2016-06-12 12:15 | RAD ---
CT of the chest without contrast, 06/12/2016: History: Follow-up lung mass, shortness of breath Noncontrast scans were obtained as requested. Comparison is made to a study from 05/18/2016. There is extensive pulmonary edema. There are scattered pleural-parenchymal scars. Moderate bronchiectasis is present in the right upper lobe. There are several calcified granulomata in both lungs. Patchy pulmonary opacities have developed in the left upper lobe laterally. There are bronchograms within a portion of this process. No underlying central bronchial obstructive lesion is seen. There are also less dense infiltrates in the lingula with interlobular septal thickening and groundglass opacities. The findings suggest pneumonia. There is a small amount of left-sided pleural fluid which was not present on the previous study. There is extensive calcific plaquing of the thoracic aorta and coronary arteries. There is a large hiatal hernia. It contains retained food, fluid and other radiopaque debris. Tiny nonspecific low density lesions are present in the thyroid gland. No mediastinal adenopathy is evident. Several unchanged low-density lesions in the liver are probably cysts. There are multiple vertebral compression fractures at the thoracolumbar junction. One of these fractures at what appears be the L2 level has progressed slightly. IMPRESSION: 1. Extensive pulmonary emphysema and pleural-parenchymal scarring with chronic bronchiectasis in the right upper lobe. 2. Patchy left upper lobe infiltrates have developed compatible with superimposed pneumonia. 3. Small associated left pleural effusion. 4. Extensive calcific plaquing of the aorta and coronary arteries. 5. Large hiatal hernia. 6. Thoracolumbar vertebral compression fractures with slight interval worsening of the vertebral body compression at L2 since 05/18/2016. PQRS Compliance Statement: One or more of the following individualized dose reduction techniques were utilized for this examination: 1. Automated exposure control 2. Adjustment of the mA and/or kV according to patient size 3. Use of iterative reconstruction technique
[2016-06-12] MEDS ORDERED: HYDROCODONE/APAP 7.5/325MG TABLET. PO SCH (13:00)
--- NOTE | 2016-06-12 13:05 | PDOC ---
Provider Note Provider Note dictated ARMANDO GUILLAUME MD Jun 12, 2016 13:05
--- NOTE | 2016-06-12 13:34 | HP ---
ADMIT DATE: 06/11/2016 REASON FOR ADMISSION TO THE HOSPITAL: COPD with acute exacerbation. HISTORY OF PRESENT ILLNESS: The patient is a 71-year-old female with history of COPD, she is on home oxygen 2 liters, history of osteoporosis, compression fracture of the spine, still continues to smoke and she lives with her daughter, having problem with shortness of breath, came to the Emergency Room. She also complains of headache, has a history of brain aneurysm, had coiling done at more than [address] head was done, no acute problems noted. The patient was admitted and diagnosed with chronic obstructive pulmonary disease with acute exacerbation and started on Solu-Medrol and IV antibiotics. The patient was in the hospital 3 weeks ago with similar problems and she got better. She wanted to go home the same day and was discharged. PAST MEDICAL HISTORY: Anemia; osteoporosis; emphysema; COPD with hypoxia, on oxygen; anemia; had an EGD, colonoscopy and bone marrow biopsy in the past. PAST SURGICAL HISTORY: Had a brain aneurysm and had a coil placed in one of the arteries in the brain at more than 5 years ago, fracture of the hip and compression fracture of the spine. ALLERGIES: No allergies to the medications. She cannot do MRI because of the coiling. MEDICATIONS AT HOME: She is on Lortab 5/325 four times daily, oxygen between 2-3 liters daily, Symbicort 2 puffs twice a day, Spiriva 1 daily, Ventolin 2 puffs 4 times daily, prednisone on and off and not every day, vitamin D twice a day. PERSONAL HISTORY: Smoked most of her adult life, still smokes. Denies alcohol or street drugs. SOCIAL HISTORY: She ambulates with a walker. She has oxygen at home. Lives with her daughter. FAMILY HISTORY: COPD. REVIEW OF SYSTEMS: CARDIAC COOK: No chest pain. LUNGS: Complains of shortness of breath. GASTROINTESTINAL: No nausea. NEUROLOGICAL: Some headaches. Rest of the 14-system was reviewed and negative. PHYSICAL EXAMINATION: GENERAL: The patient is chronically ill looking, not in any distress. VITAL SIGNS: Temperature 98, pulse 120, respirations 20, blood pressure 152/95, 95% on 2 liters. HEENT: Head is atraumatic. Pupils are equal. Oral cavity: Very few teeth present, bad dentition. NECK: Supple. Thyroid not enlarged. JVD not elevated. CHEST: COPD pattern, severe emphysema. CARDIOVASCULAR: S1, S2. LUNGS: Diminished breath sounds. The patient has kyphosis of the spine. ABDOMEN: Soft, no mass palpable. EXTERNAL GENITALIA: No [place]. RECTAL: Deferred. EXTREMITIES: No calf tenderness, no edema. Pulses 1+. NEUROLOGIC: Cranial nerves intact. Moving upper extremities and lower extremities. LABORATORY DATA: Shows a white count of 15, hemoglobin 8.4, platelets 564. Electrolytes show sodium 143, potassium 3.2, chloride 97, bicarbonate 42, BUN 14, creatinine 0.4, glucose 110. Lactic acid 1.4. LFTs were normal. BNP was 2337. Blood gas shows pH of 7.49, pCO2 of 57, pO2 of 60, bicarbonate 43, FiO2 on 28%. INR 1.0. Chest x-ray: Emphysema with moderate pleural parenchymal scarring, left upper lobe infiltrate, moderate-sized hiatal hernia. CT head: No acute findings. Opacification in the left maxillary sinus. FINAL IMPRESSION: 1. Acute chronic obstructive pulmonary disease with exacerbation. 2. Acute bronchitis. 3. Chronic recurrent sinusitis. 4. Chronic obstructive pulmonary disease with hypoxia. 5. Chronic anemia secondary to iron deficiency. 6. Hypokalemia. 7. History of brain aneurysm, recording done. 8. Smoking addiction. 9. Osteoporosis with compression fracture of the spine. 10. General debility and decline and protein-calorie malnutrition, moderate. PLAN: At this time, admit to hospital, IV Solu-Medrol, oxygen and breathing treatments, IV Zosyn and vancomycin, CT chest, pulmonary consult, sputum cultures and breathing treatments to see how the patient's condition improves. Again, smoking counseling was done. TRICIA PERRY MD DR: IVETTE/brandon JOB#: [id number] / [id number]
--- NOTE | 2016-06-12 14:00 | CONS ---
DATE OF CONSULTATION: ATTENDING PHYSICIAN: Dr. Salomon. REASON FOR CONSULTATION: Respiratory failure, abnormal ct chest/ pneumonia. HISTORY OF PRESENT ILLNESS: The patient is a 71-year-old female with history of chronic obstructive airway disease and has been on home oxygen 2 liters on a p.r.n. basis, osteoporosis and history of L2 fracture with chronic back pain. She presented to the Emergency Department with complaint of shortness of breath. The patient says she is using her oxygen most of the time. She also has a cough, but she was unable to bring up any sputum. She had no fevers or chills, no chest pains. No leg edema. She underwent imaging study, which I have reviewed the CT chest. She has evidence of pulmonary emphysema and pleural parenchymal scarring in the right upper lobe. There is a new patchy consolidation in the left upper lobe. Small tiny left pleural effusion and also vertebral compression fracture with worsening at L2 since 05/18/2016. She is currently on 3 liters of oxygen. PAST MEDICAL HISTORY: History of COPD and chronic respiratory failure. History of osteoporosis. History of L2 fracture. PAST SURGICAL HISTORY: Hip fracture repair MEDICATIONS: All reviewed as listed in the MRAD including antibiotics, vancomycin, Zosyn and bronchodilators with steroids. REVIEW OF SYSTEMS: Twelve-point systems were obtained, pertinent positives discussed in history of present illness, otherwise noncontributory. All systems that were negative were reviewed as well. 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 PHYSICAL EXAMINATION: VITAL SIGNS: Blood pressure stable, pulse ox 92% on 3 liters, afebrile. HEENT: Sclerae nonicteric. NECK: Supple. LUNGS: Diminished breath sounds bilaterally. CARDIOVASCULAR: Regular rate and rhythm. ABDOMEN: Soft. EXTREMITIES: No pitting edema. LABORATORY DATA: Reviewed. ABGs with a pH of ____, pCO2 of 57, pO2 of 60 on 28% FIO2. BUN 14, creatinine 0.4. White cell count 15.4, hemoglobin 8.4 and platelets are 564. IMPRESSION: 1. Acute on chronic hypoxic respiratory failure secondary to underlying chronic obstructive pulmonary disease, mild bronchiectasis in the right upper lobe and also in new left upper lobe pneumonia. 2. Abnormal CT chest with severe emphysematous changes along with bronchiectasis in the right upper lobe and a new left upper lobe consolidation. 3. Leukocytosis secondary to pneumonia. 4. Worsening L2 compression fracture with chronic back pain. RECOMMENDATIONS: 1. Continue with present broad spectrum antibiotics to cover for gram-negative and gram-positive organisms. 2. Continue DuoNeb. 3. Continue IV Solu-Medrol with gradual taper. 4. Repeat chest x-ray in few days. 5. Pain medication per Dr. Salomon. 6. Discussed with RN. We will follow along with you. ARMANDO GUILLAUME MD DR: STERLING/brandon JOB#: [id number] / [id number] DEB[place]
[2016-06-13] VITALS (10 sets, daily range): BP systolic 129–160; BP diastolic 51–94
[2016-06-13] MEDS: VANCOMYCIN 500 MG in IV NORMAL SALINE 100ML 100 ML IV SCH (01:15)
[2016-06-13] MEDS: PIPERACILLIN/TAZOBACTAM 2.25 GM in IV NORMAL SALINE 50ML 50 ML IV SCH ×4 (05:17→23:50)
[2016-06-13 06:48] LABS: BASO % 0 % (0-3); EOS % 0 % (0-3); HEMATOCRIT 23.9 % (36.0-47.0); LYMPH # 0.7 x10^3/uL (1.0-4.8); LYMPH % 5 % (24-48); MEAN CORPUSCULAR HEMOGLOBIN 22 pg (25-35); MEAN CORPUSCULAR HGB CONC 29 g/dL (31-37); MEAN CORPUSCULAR VOLUME 74 fL (79-100); MONO % 4 % (0-9); NEUT % 90 % (31-73); PLATELET COUNT 565 x10^3/uL (140-400); RED BLOOD COUNT 3.23 x10^6/uL (3.50-5.40); RED CELL DISTRIBUTION WIDTH 20.2 % (11.5-14.5); WHITE BLOOD COUNT 13.1 x10^3/uL (4.0-11.0)
[2016-06-13 07:00] LABS: CALCIUM 8.6 mg/dL (8.5-10.1); CREATININE 0.4 mg/dL (0.6-1.0); GFR 158.3; POTASSIUM 4.3 mmol/L (3.5-5.1)
[2016-06-13] MEDS: BUDESONIDE 0.5 MG/2 ML NEBU. NEB SCH ×2 (07:37→19:33)
[2016-06-13] MEDS: IPRATRPIUM/ALBUTEROL 0.5/2.5MG 3 ML NEBU. NEB SCH ×4 (07:37→19:33)
[2016-06-13 08:03] LABS: ANISOCYTOSIS PRESENT; HYPOCHROMIA MARKED; MICROCYTOSIS PRESENT; PLT ESTIMATE INCREASED (ADEQUATE)
--- NOTE | 2016-06-13 08:59 | PDOC ---
PULMONARY PROGRESS NOTES Subjective pt more soa during transfusion Vitals Vital Signs Date Time Temp Pulse Resp B/P Pulse Ox O2 Delivery O2 Flow Rate FiO2 06/13/16 07:43 98 Nasal Cannula 3.0 06/13/16 07:15 98.2 102 18 150/86 98.2 General: Alert Lungs: Crackles Cardiovascular: S1, S2 Abdomen: Soft Neuro Exam: Alert Extremities: No Edema Skin: Warm Labs Laboratory Tests Test 06/11/16 22:20 06/11/16 22:30 06/13/16 05:15 O2 Saturation 90% (92-99) Arterial Blood pH 7.49 (7.35-7.45) Arterial Blood pCO2 at Patient Temp 57mmHg (35-46) Arterial Blood pO2 at Patient Temp 60mmHg (65-108) Arterial Blood HCO3 43mmol/L (21-28) Arterial Blood Base Excess 18mmol/L (-3-3) FiO2 28.0 White Blood Count 15.4x10^3/uL (4.0-11.0) 13.1x10^3/uL (4.0-11.0) Red Blood Count 3.92x10^6/uL (3.50-5.40) 3.23x10^6/uL (3.50-5.40) Hemoglobin 8.4g/dL (12.0-15.5) 7.0g/dL (12.0-15.5) Hematocrit 28.8% (36.0-47.0) 23.9% (36.0-47.0) Mean Corpuscular Volume 74fL (79-100) 74fL (79-100) Mean Corpuscular Hemoglobin 22pg (25-35) 22pg (25-35) Mean Corpuscular Hemoglobin Concent 29g/dL (31-37) 29g/dL (31-37) Red Cell Distribution Width 21.0% (11.5-14.5) 20.2% (11.5-14.5) Platelet Count 564x10^3/uL (140-400) 565x10^3/uL (140-400) Neutrophils (%) (Auto) 81% (31-73) 90% (31-73) Lymphocytes (%) (Auto) 8% (24-48) 5% (24-48) Monocytes (%) (Auto) 9% (0-9) 4% (0-9) Eosinophils (%) (Auto) 1% (0-3) 0% (0-3) Basophils (%) (Auto) 0% (0-3) 0% (0-3) Neutrophils # (Auto) 12.5x10^3uL (1.8-7.7) 11.8x10^3uL (1.8-7.7) Lymphocytes # (Auto) 1.3x10^3/uL (1.0-4.8) 0.7x10^3/uL (1.0-4.8) Monocytes # (Auto) 1.5x10^3/uL (0.0-1.1) 0.6x10^3/uL (0.0-1.1) Eosinophils # (Auto) 0.1x10^3/uL (0.0-0.7) 0.0x10^3/uL (0.0-0.7) Basophils # (Auto) 0.0x10^3/uL (0.0-0.2) 0.0x10^3/uL (0.0-0.2) Platelet Estimate Increased (ADEQUATE) Increased (ADEQUATE) Hypochromasia Mod Marked Poikilocytosis Slight Anisocytosis Mod Present Microcytosis Slight Present Prothrombin Time 13.0SEC (11.7-14.0) Prothromb Time International Ratio 1.0 (0.8-1.1) Activated Partial Thromboplast Time 31SEC (24-38) Sodium Level 143mmol/L (136-145) 141mmol/L (136-145) Potassium Level 3.2mmol/L (3.5-5.1) 4.3mmol/L (3.5-5.1) Chloride Level 97mmol/L (98-107) 100mmol/L (98-107) Carbon Dioxide Level 42mmol/L (21-32) 37mmol/L (21-32) Anion Gap 4 (6-14) 4 (6-14) Blood Urea Nitrogen 14mg/dL (7-20) 11mg/dL (7-20) Creatinine 0.4mg/dL (0.6-1.0) 0.4mg/dL (0.6-1.0) Estimated GFR (Cockcroft-Gault) 158.3 158.3 BUN/Creatinine Ratio 35 (6-20) Glucose Level 110mg/dL (70-99) 93mg/dL (70-99) Lactic Acid Level 1.4mmol/L (0.4-2.0) Calcium Level 8.9mg/dL (8.5-10.1) 8.6mg/dL (8.5-10.1) Total Bilirubin 0.2mg/dL (0.2-1.0) Aspartate Amino Transf (AST/SGOT) 28U/L (15-37) Alanine Aminotransferase (ALT/SGPT) 31U/L (14-59) Alkaline Phosphatase 97U/L (46-116) Troponin I Quantitative < 0.017ng/mL (0.000-0.055) FK-Xuc-Q-Type Natriuretic Peptide 2337pg/mL (0-124) Total Protein 6.7g/dL (6.4-8.2) Albumin 3.0g/dL (3.4-5.0) Albumin/Globulin Ratio 0.8 (1.0-1.7) Segmented Neutrophils % 89% (35-66) Lymphocytes % 7% (24-48) Monocytes % 4% (0-10) Large Platelets Present Laboratory Tests Test 06/13/16 05:15 White Blood Count 13.1x10^3/uL (4.0-11.0) Red Blood Count 3.23x10^6/uL (3.50-5.40) Hemoglobin 7.0g/dL (12.0-15.5) Hematocrit 23.9% (36.0-47.0) Mean Corpuscular Volume 74fL (79-100) Mean Corpuscular Hemoglobin 22pg (25-35) Mean Corpuscular Hemoglobin Concent 29g/dL (31-37) Red Cell Distribution Width 20.2% (11.5-14.5) Platelet Count 565x10^3/uL (140-400) Neutrophils (%) (Auto) 90% (31-73) Lymphocytes (%) (Auto) 5% (24-48) Monocytes (%) (Auto) 4% (0-9) Eosinophils (%) (Auto) 0% (0-3) Basophils (%) (Auto) 0% (0-3) Neutrophils # (Auto) 11.8x10^3uL (1.8-7.7) Lymphocytes # (Auto) 0.7x10^3/uL (1.0-4.8) Monocytes # (Auto) 0.6x10^3/uL (0.0-1.1) Eosinophils # (Auto) 0.0x10^3/uL (0.0-0.7) Basophils # (Auto) 0.0x10^3/uL (0.0-0.2) Segmented Neutrophils % 89% (35-66) Lymphocytes % 7% (24-48) Monocytes % 4% (0-10) Platelet Estimate Increased (ADEQUATE) Large Platelets Present Hypochromasia Marked Anisocytosis Present Microcytosis Present Sodium Level 141mmol/L (136-145) Potassium Level 4.3mmol/L (3.5-5.1) Chloride Level 100mmol/L (98-107) Carbon Dioxide Level 37mmol/L (21-32) Anion Gap 4 (6-14) Blood Urea Nitrogen 11mg/dL (7-20) Creatinine 0.4mg/dL (0.6-1.0) Estimated GFR (Cockcroft-Gault) 158.3 Glucose Level 93mg/dL (70-99) Calcium Level 8.6mg/dL (8.5-10.1) Medications Active Scripts Medications Dose Route/Sig Days Date Category Doxycycline Monohydrate 100 Mg Capsule 1 Cap PO BID 05/19/16 Rx Prednisone 50 Mg Tablet 50 Mg PO DAILY 05/19/16 Rx Prednisone 20 Mg Tablet 40 Mg PO DAILY 05/11/14 Rx Albuterol Sulfate Neb Soln (Albuterol Sulfate) 2.5 Mg/3 Ml Vial.neb 2.5 Mg NEB 09/30/13 Reported [employer]te [employer] Seniors (Multivitamin W/Iron, Minerals) 1 Each Tablet 1 Each PO 09/30/13 Reported Ventolin Hfa Inhaler (Albuterol Sulfate) 18 Gm Hfa.aer.ad 2 Puff INH Q4HRS 09/30/13 Reported Iron (Ferrous Sulfate) 325 Mg Tablet 325 Mg PO 09/30/13 Reported Aspirin Ec (Aspirin) 81 Mg Tablet.dr 81 Mg PO 09/30/13 Reported Hydrocodone-Apap 7.5-325 (Hydrocodone Bit/Acetaminophen) 1 Each Tablet 1 Each PO 05/24/13 Reported Calcium 600 + Vit D 200 Tablet (Calcium Carbonate/Vitamin D3) 1 Each Tablet 1 Each PO 05/24/13 Reported Symbicort 160-4.5 Mcg Inhaler (Budesonide/Formoterol Fumarate) 10.2 Gm Hfa.aer.ad 10.2 Gm IH 05/24/13 Reported Spiriva (Tiotropium [place]) 18 Mcg Cap.w.dev 18 Mcg IH 05/24/13 Reported Impression . IMPRESSION: 1. Acute on chronic hypoxic respiratory failure secondary to underlying chronic obstructive pulmonary disease, mild bronchiectasis in the right upper lobe and also in new left upper lobe pneumonia. 2. Abnormal CT chest with severe emphysematous changes along with bronchiectasis in the right upper lobe and a new left upper lobe consolidation. 3. Leukocytosis secondary to pneumonia. 4. Worsening L2 compression fracture with chronic back pain. Plan . cxr reviewed no new infiltrates no sigh of pulmonary edema 1. Continue with present broad spectrum antibiotics to cover for gram-negative and gram-positive organisms. 2. Continue DuoNeb. 3. Continue IV Solu-Medrol with gradual taper. 4. Repeat chest x-ray in few days. 5. hold further transfusion KENYON BARRON MD Jun 13, 2016 08:59
[2016-06-13] MEDS: methylPREDNISolone SOD SUCC PF 40 MG/ML VIAL. IV SCH ×2 (09:03→20:20)
[2016-06-13] MEDS: FERROUS SULFATE 325 MG TABLET PO SCH (09:03)
[2016-06-13] MEDS: ASPIRIN ENTERIC COATED 81 MG TABLET.DR. PO SCH (09:03)
--- NOTE | 2016-06-13 10:31 | PDOC ---
PROGRESS NOTES Subjective Subjective wanting to go home this am Objective Objective Vital Signs Date Time Temp Pulse Resp B/P Pulse Ox O2 Delivery O2 Flow Rate FiO2 06/13/16 08:15 Nasal Cannula 3.0 06/13/16 07:43 98 06/13/16 07:15 98.2 102 18 150/86 98.2 Intake and Output 06/13/16 07:00 Intake Total 390 ml Output Total 200 ml Balance 190 ml Intake Oral 240 ml IV Total 150 ml Output Urine Total 200 ml Physical Exam Abdomen: Normal bowel sounds, Soft Heart: Regular rate, Normal S1, Normal S2 Extremities: No clubbing General: No acute distress HEENT: EOMI Lungs: Normal air movement MUSCULOSKELETAL: Osteoarthritic changes both hands, Other Neck: Supple Neuro: Normal speech Psych/Mental Status: Mood NL Diagnosis Problem List Problems Medical Problems: (1) Altered mental status Status: Acute (2) COPD exacerbation Status: Acute (3) HCAP (healthcare-associated pneumonia) Status: Acute Assessment Assessment Problems Medical Problems: (1) Altered mental status Status: Acute (2) COPD exacerbation Status: Acute (3) HCAP (healthcare-associated pneumonia) Status: Acute FINAL IMPRESSION: Anemia Hb 7.0 today 1. Acute chronic obstructive pulmonary disease with exacerbation. 2. Acute bronchitis. 3. Chronic recurrent sinusitis. 4. Chronic obstructive pulmonary disease with hypoxia. 5. Chronic anemia secondary to iron deficiency. 6. Hypokalemia. 7. History of brain aneurysm, recording done. 8. Smoking addiction. 9. Osteoporosis with compression fracture of the spine. 10. General debility and decline and protein-calorie malnutrition, moderate. PLAN: transfuse today [address] chest + Pneumonia. scarring in Lungs ,no lung mass. labs reviewed hb 7.0. At this time, admit to hospital, IV Solu-Medrol, oxygen and breathing treatments, IV Zosyn and vancomycin, CT chest, pulmonary consult, sputum cultures and breathing treatments to see how the patient's condition improves. Again, smoking counseling was done. Problems: Plan Plan of Care Problems Medical Problems: (1) Altered mental status Status: Acute (2) COPD exacerbation Status: Acute (3) HCAP (healthcare-associated pneumonia) Status: Acute Comment Review of Relevant I have reviewed the following items jeff (where applicable) has been applied. Labs Laboratory Tests Test 06/13/16 05:15 White Blood Count 13.1x10^3/uL (4.0-11.0) Red Blood Count 3.23x10^6/uL (3.50-5.40) Hemoglobin 7.0g/dL (12.0-15.5) Hematocrit 23.9% (36.0-47.0) Mean Corpuscular Volume 74fL (79-100) Mean Corpuscular Hemoglobin 22pg (25-35) Mean Corpuscular Hemoglobin Concent 29g/dL (31-37) Red Cell Distribution Width 20.2% (11.5-14.5) Platelet Count 565x10^3/uL (140-400) Neutrophils (%) (Auto) 90% (31-73) Lymphocytes (%) (Auto) 5% (24-48) Monocytes (%) (Auto) 4% (0-9) Eosinophils (%) (Auto) 0% (0-3) Basophils (%) (Auto) 0% (0-3) Neutrophils # (Auto) 11.8x10^3uL (1.8-7.7) Lymphocytes # (Auto) 0.7x10^3/uL (1.0-4.8) Monocytes # (Auto) 0.6x10^3/uL (0.0-1.1) Eosinophils # (Auto) 0.0x10^3/uL (0.0-0.7) Basophils # (Auto) 0.0x10^3/uL (0.0-0.2) Segmented Neutrophils % 89% (35-66) Lymphocytes % 7% (24-48) Monocytes % 4% (0-10) Platelet Estimate Increased (ADEQUATE) Large Platelets Present Hypochromasia Marked Anisocytosis Present Microcytosis Present Sodium Level 141mmol/L (136-145) Potassium Level 4.3mmol/L (3.5-5.1) Chloride Level 100mmol/L (98-107) Carbon Dioxide Level 37mmol/L (21-32) Anion Gap 4 (6-14) Blood Urea Nitrogen 11mg/dL (7-20) Creatinine 0.4mg/dL (0.6-1.0) Estimated GFR (Cockcroft-Gault) 158.3 Glucose Level 93mg/dL (70-99) Calcium Level 8.6mg/dL (8.5-10.1) Microbiology 06/12/16 Blood Culture - Preliminary, Resulted NO GROWTH AFTER 1 DAY Medications Current Medications Acetaminophen/ Hydrocodone Bitart (Lortab 7.5/325) 1 tab QID PO ; Start at 13:00; Stop 06/12/16 at 13:00; Status DC Albuterol/ Ipratropium (Duoneb) 3 ml RTQID NEB Last administered on 06/13/16 07:37; Start 06/12/16 at 12:00 Aspirin (Ecotrin) 81 mg DAILY PO Last administered on 06/13/16 09:03; Start at 12:00 Budesonide (Pulmicort) 0.5 mg RTBID NEB Last administered on 06/13/16 07:37; Start 06/12/16 at 11:00 Ferrous Sulfate (Feosol) 325 mg DAILY PO Last administered on 06/13/16 09:03; Start 06/12/16 at 12:00 Potassium Chloride (Klor-Con) 40 meq 1X ONCE PO Last administered on 10:31; Start 06/12/16 at 11:00; Stop 06/12/16 at 11:01; Status DC Vancomycin HCl 1 each 1X ONCE MC ; Start 06/14/16 at 01:00; Stop 06/14/16 at 01 :01 Vancomycin HCl/ Sodium Chloride (Iv Sodium Chloride 0.9% 100ml) 100 ml @ 100 mls/hr Q24H IV Last administered on 06/13/16 01:15; Start 06/13/16 at 01:30 Vitals/I & O Vital Sign - Last 24 Hours 06/12/16 06/12/16 06/12/16 06/12/16 10:37 11:53 11:58 15:04 Temp 98.5 98.3 98.5 98.3 Pulse 114 114 Resp 17 16 B/P 129/74 133/55 Pulse Ox 92 92 O2 Delivery Nasal Cannula Nasal Cannula Nasal Cannula Nasal Cannula O2 Flow Rate 3.0 3.0 3.0 3.0 06/12/16 06/12/16 06/12/16 06/12/16 16:00 19:20 19:43 20:00 Temp 98.2 98.2 Pulse 109 Resp 20 B/P 125/82 Pulse Ox 95 O2 Delivery Nasal Cannula Nasal Cannula Room Air Nasal Cannula O2 Flow Rate 3.0 3.0 3.0 3.0 06/12/16 06/13/16 06/13/16 06/13/16 22:38 03:00 07:15 07:40 Temp 98.4 98.0 98.2 98.4 98.0 98.2 Pulse 107 100 102 Resp 20 20 18 B/P 148/82 149/94 150/86 Pulse Ox 95 97 96 98 O2 Delivery Nasal Cannula Nasal Cannula Nasal Cannula Nasal Cannula O2 Flow Rate 3.0 3.0 3.0 3.0 06/13/16 06/13/16 07:43 08:15 Pulse Ox 98 O2 Delivery Nasal Cannula Nasal Cannula O2 Flow Rate 3.0 3.0 Intake and Output 06/12/16 06/12/16 06/13/16 15:00 23:00 07:00 Intake Total 240 ml 150 ml Output Total 200 ml Balance 40 ml 150 ml TRICIA PERRY MD Jun 13, 2016 10:31
--- NOTE | 2016-06-13 13:33 | EKG ---
[facility] [address] [place] [id number] Test Date: 2016-06-13 Test Time: 13:31:16 Pat Name: GURWINDER GOLDSTEIN Department: Room: 528 1 Gender: F Credit Charge Authorizer: TYRON : 1945 Requested By: TRICIA PERRY Order Number: [id number] Reading MD: Ninfa Gil Measurements Intervals [place] Rate: 126 P: 80 AK: 96 QRS: 33 QRSD: 82 T: 102 QT: 310 QTc: 449 Interpretive Statements SINUS TACHYCARDIA BIATRIAL ENLARGEMENT LVH WITH REPOLARIZATION ABNORMALITY QRS(T) CONTOUR ABNORMALITY CONSIDER ANTEROLATERAL MYOCARDIAL DAMAGE ABNORMAL ECG Electronically Signed On 06-13-2016 21:05:46 CDT by Ninfa Gil
[2016-06-13] MEDS ORDERED: FUROSEMIDE 40 MG/4 ML VIAL IVP ONE (13:45)
--- NOTE | 2016-06-13 14:07 | RAD ---
Portable chest, 06/13/2016: History: Sinus tachycardia Comparison is made to a study from 06/11/2016. The heart is within normal limits in size. There is a large hiatal hernia. There is calcific plaquing of the aorta. There are bilateral pleural-parenchymal opacities which are unchanged. This appears to represent mild left upper lobe infiltrate superimposed upon chronic pleural-parenchymal scarring. No new pulmonary abnormality is seen. There is no evidence of pleural fluid or pneumothorax. IMPRESSION: No significant change since 06/11/2016.
[2016-06-13] MEDS: VANCOMYCIN PER PHARMACY MC PRN (15:01)
[2016-06-13] MEDS: HYDROCODONE/APAP 7.5/325MG TABLET. PO PRN (20:20)
[2016-06-14] MEDS ORDERED: LORAZEPAM 0.5 MG TABLET. PO ONE (01:00)
[2016-06-14] MEDS: VANCOMYCIN 500 MG in IV NORMAL SALINE 100ML 100 ML IV SCH (01:30)
[2016-06-14] MEDS ORDERED: VANCOMYCIN 1.25 GM in IV NORMAL SALINE 250ML 250 ML IV SCH (02:00)
[2016-06-14] MEDS: VANCOMYCIN PER PHARMACY MC PRN ×2 (02:20→08:15)
[2016-06-14 03:00] VITALS: BP 163/70
[2016-06-14 03:18] LABS: BASO % 0 % (0-3); EOS % 0 % (0-3); HEMATOCRIT 29.3 % (36.0-47.0); HEMOGLOBIN 8.4 g/dL (12.0-15.5); LYMPH # 0.4 x10^3/uL (1.0-4.8); LYMPH % 2 % (24-48); MEAN CORPUSCULAR HEMOGLOBIN 22 pg (25-35); MEAN CORPUSCULAR HGB CONC 29 g/dL (31-37); MEAN CORPUSCULAR VOLUME 76 fL (79-100); MONO % 2 % (0-9); NEUT % 97 % (31-73); PLATELET COUNT 629 x10^3/uL (140-400); RED BLOOD COUNT 3.87 x10^6/uL (3.50-5.40); RED CELL DISTRIBUTION WIDTH 20.5 % (11.5-14.5)
[2016-06-14 03:20] LABS: ALBUMIN 2.8 g/dL (3.4-5.0); ALBUMIN/GLOBULIN RATIO 0.7 (1.0-1.7); CALCIUM 8.6 mg/dL (8.5-10.1); CREATININE 0.7 mg/dL (0.6-1.0); TOTAL BILIRUBIN 0.3 mg/dL (0.2-1.0); TOTAL PROTEIN 6.7 g/dL (6.4-8.2)
[2016-06-14] MEDS: PIPERACILLIN/TAZOBACTAM 2.25 GM in IV NORMAL SALINE 50ML 50 ML IV SCH ×3 (06:14→18:57)
[2016-06-14 07:00] VITALS: BP 162/61
[2016-06-14] MEDS: BUDESONIDE 0.5 MG/2 ML NEBU. NEB SCH ×2 (07:28→19:56)
[2016-06-14] MEDS: IPRATRPIUM/ALBUTEROL 0.5/2.5MG 3 ML NEBU. NEB SCH ×4 (07:28→19:56)
[2016-06-14 08:43] LABS: PLT ESTIMATE INCREASED (ADEQUATE)
--- NOTE | 2016-06-14 08:49 | PDOC ---
PULMONARY PROGRESS NOTES Subjective pt feels better not soa Vitals Vital Signs Date Time Temp Pulse Resp B/P Pulse Ox O2 Delivery O2 Flow Rate FiO2 06/14/16 07:28 99 Nasal Cannula 3.0 06/14/16 07:00 98.2 97 18 162/61 98.2 ROS: No Nausea, No Chest Pain, No Abdominal Pain, No Increase Cough General: Alert Lungs: Crackles Cardiovascular: S1, S2 Abdomen: Soft Neuro Exam: Alert Extremities: No Edema Skin: Warm Labs Laboratory Tests Test 06/13/16 05:15 06/14/16 00:40 White Blood Count 13.1x10^3/uL (4.0-11.0) 24.0x10^3/uL (4.0-11.0) Red Blood Count 3.23x10^6/uL (3.50-5.40) 3.87x10^6/uL (3.50-5.40) Hemoglobin 7.0g/dL (12.0-15.5) 8.4g/dL (12.0-15.5) Hematocrit 23.9% (36.0-47.0) 29.3% (36.0-47.0) Mean Corpuscular Volume 74fL (79-100) 76fL (79-100) Mean Corpuscular Hemoglobin 22pg (25-35) 22pg (25-35) Mean Corpuscular Hemoglobin Concent 29g/dL (31-37) 29g/dL (31-37) Red Cell Distribution Width 20.2% (11.5-14.5) 20.5% (11.5-14.5) Platelet Count 565x10^3/uL (140-400) 629x10^3/uL (140-400) Neutrophils (%) (Auto) 90% (31-73) 97% (31-73) Lymphocytes (%) (Auto) 5% (24-48) 2% (24-48) Monocytes (%) (Auto) 4% (0-9) 2% (0-9) Eosinophils (%) (Auto) 0% (0-3) 0% (0-3) Basophils (%) (Auto) 0% (0-3) 0% (0-3) Neutrophils # (Auto) 11.8x10^3uL (1.8-7.7) 23.2x10^3uL (1.8-7.7) Lymphocytes # (Auto) 0.7x10^3/uL (1.0-4.8) 0.4x10^3/uL (1.0-4.8) Monocytes # (Auto) 0.6x10^3/uL (0.0-1.1) 0.4x10^3/uL (0.0-1.1) Eosinophils # (Auto) 0.0x10^3/uL (0.0-0.7) 0.0x10^3/uL (0.0-0.7) Basophils # (Auto) 0.0x10^3/uL (0.0-0.2) 0.0x10^3/uL (0.0-0.2) Segmented Neutrophils % 89% (35-66) 96% (35-66) Lymphocytes % 7% (24-48) 2% (24-48) Monocytes % 4% (0-10) 1% (0-10) Platelet Estimate Increased (ADEQUATE) Increased (ADEQUATE) Large Platelets Present Hypochromasia Marked Anisocytosis Present Microcytosis Present Sodium Level 141mmol/L (136-145) 138mmol/L (136-145) Potassium Level 4.3mmol/L (3.5-5.1) 4.0mmol/L (3.5-5.1) Chloride Level 100mmol/L (98-107) 97mmol/L (98-107) Carbon Dioxide Level 37mmol/L (21-32) 34mmol/L (21-32) Anion Gap 4 (6-14) 7 (6-14) Blood Urea Nitrogen 11mg/dL (7-20) 16mg/dL (7-20) Creatinine 0.4mg/dL (0.6-1.0) 0.7mg/dL (0.6-1.0) Estimated GFR (Cockcroft-Gault) 158.3 83.0 Glucose Level 93mg/dL (70-99) 223mg/dL (70-99) Calcium Level 8.6mg/dL (8.5-10.1) 8.6mg/dL (8.5-10.1) Band Neutrophils % 1% (0-9) Erythrocyte Sedimentation Rate 30 (0-25) BUN/Creatinine Ratio 23 (6-20) Total Bilirubin 0.3mg/dL (0.2-1.0) Aspartate Amino Transf (AST/SGOT) 20U/L (15-37) Alanine Aminotransferase (ALT/SGPT) 35U/L (14-59) Alkaline Phosphatase 81U/L (46-116) Total Protein 6.7g/dL (6.4-8.2) Albumin 2.8g/dL (3.4-5.0) Albumin/Globulin Ratio 0.7 (1.0-1.7) Vancomycin Level Trough 2.1mcg/mL (10.0-20.0) Vancomycin Last Dose Date [id number] Vancomycin Last Dose Time 013 Laboratory Tests Test 06/14/16 00:40 White Blood Count 24.0x10^3/uL (4.0-11.0) Red Blood Count 3.87x10^6/uL (3.50-5.40) Hemoglobin 8.4g/dL (12.0-15.5) Hematocrit 29.3% (36.0-47.0) Mean Corpuscular Volume 76fL (79-100) Mean Corpuscular Hemoglobin 22pg (25-35) Mean Corpuscular Hemoglobin Concent 29g/dL (31-37) Red Cell Distribution Width 20.5% (11.5-14.5) Platelet Count 629x10^3/uL (140-400) Neutrophils (%) (Auto) 97% (31-73) Lymphocytes (%) (Auto) 2% (24-48) Monocytes (%) (Auto) 2% (0-9) Eosinophils (%) (Auto) 0% (0-3) Basophils (%) (Auto) 0% (0-3) Neutrophils # (Auto) 23.2x10^3uL (1.8-7.7) Lymphocytes # (Auto) 0.4x10^3/uL (1.0-4.8) Monocytes # (Auto) 0.4x10^3/uL (0.0-1.1) Eosinophils # (Auto) 0.0x10^3/uL (0.0-0.7) Basophils # (Auto) 0.0x10^3/uL (0.0-0.2) Segmented Neutrophils % 96% (35-66) Band Neutrophils % 1% (0-9) Lymphocytes % 2% (24-48) Monocytes % 1% (0-10) Platelet Estimate Increased (ADEQUATE) Erythrocyte Sedimentation Rate 30 (0-25) Sodium Level 138mmol/L (136-145) Potassium Level 4.0mmol/L (3.5-5.1) Chloride Level 97mmol/L (98-107) Carbon Dioxide Level 34mmol/L (21-32) Anion Gap 7 (6-14) Blood Urea Nitrogen 16mg/dL (7-20) Creatinine 0.7mg/dL (0.6-1.0) Estimated GFR (Cockcroft-Gault) 83.0 BUN/Creatinine Ratio 23 (6-20) Glucose Level 223mg/dL (70-99) Calcium Level 8.6mg/dL (8.5-10.1) Total Bilirubin 0.3mg/dL (0.2-1.0) Aspartate Amino Transf (AST/SGOT) 20U/L (15-37) Alanine Aminotransferase (ALT/SGPT) 35U/L (14-59) Alkaline Phosphatase 81U/L (46-116) Total Protein 6.7g/dL (6.4-8.2) Albumin 2.8g/dL (3.4-5.0) Albumin/Globulin Ratio 0.7 (1.0-1.7) Vancomycin Level Trough 2.1mcg/mL (10.0-20.0) Vancomycin Last Dose Date Vancomycin Last Dose Time 013 Medications Active Scripts Medications Dose Route/Sig Days Date Category Doxycycline Monohydrate 100 Mg Capsule 1 Cap PO BID 05/19/16 Rx Prednisone 50 Mg Tablet 50 Mg PO DAILY 05/19/16 Rx Prednisone 20 Mg Tablet 40 Mg PO DAILY 05/11/14 Rx Albuterol Sulfate Neb Soln (Albuterol Sulfate) 2.5 Mg/3 Ml Vial.neb 2.5 Mg NEB 09/30/13 Reported [employer]te [employer] Seniors (Multivitamin W/Iron, Minerals) 1 Each Tablet 1 Each PO 09/30/13 Reported Ventolin Hfa Inhaler (Albuterol Sulfate) 18 Gm Hfa.aer.ad 2 Puff INH Q4HRS 09/30/13 Reported Iron (Ferrous Sulfate) 325 Mg Tablet 325 Mg PO 09/30/13 Reported Aspirin Ec (Aspirin) 81 Mg Tablet.dr 81 Mg PO 09/30/13 Reported Hydrocodone-Apap 7.5-325 (Hydrocodone Bit/Acetaminophen) 1 Each Tablet 1 Each PO 05/24/13 Reported Calcium 600 + Vit D 200 Tablet (Calcium Carbonate/Vitamin D3) 1 Each Tablet 1 Each PO 05/24/13 Reported Symbicort 160-4.5 Mcg Inhaler (Budesonide/Formoterol Fumarate) 10.2 Gm Hfa.aer.ad 10.2 Gm IH 05/24/13 Reported Spiriva (Tiotropium [place]) 18 Mcg Cap.w.dev 18 Mcg IH 05/24/13 Reported Impression . IMPRESSION: 1. Acute on chronic hypoxic respiratory failure secondary to underlying chronic obstructive pulmonary disease, mild bronchiectasis in the right upper lobe and also in new left upper lobe pneumonia. 2. Abnormal CT chest with severe emphysematous changes along with bronchiectasis in the right upper lobe and a new left upper lobe consolidation. 3. Leukocytosis secondary to pneumonia. 4. Worsening L2 compression fracture with chronic back pain. 5. Possible blood transfusion reaction Plan . cxr reviewed no new infiltrates no sigh of pulmonary edema ok to d/c [place] transfer out if cvicu 1. Continue with present broad spectrum antibiotics to cover for gram-negative and gram-positive organisms. 2. Continue DuoNeb. 3. Continue IV Solu-Medrol with gradual taper. 4. Repeat chest x-ray in few days. 5. hold further transfusion KENYON BARRON MD Jun 14, 2016 08:49
[2016-06-14] MEDS: ASPIRIN ENTERIC COATED 81 MG TABLET.DR. PO SCH (09:12)
[2016-06-14] MEDS: FERROUS SULFATE 325 MG TABLET PO SCH (09:12)
[2016-06-14] MEDS: methylPREDNISolone SOD SUCC PF 40 MG/ML VIAL. IV SCH ×2 (09:14→20:51)
--- NOTE | 2016-06-14 10:38 | PDOC ---
PROGRESS NOTES Subjective Subjective anxious to go home Objective Objective Vital Signs Date Time Temp Pulse Resp B/P Pulse Ox O2 Delivery O2 Flow Rate FiO2 06/14/16 08:00 Nasal Cannula 3.0 06/14/16 07:28 99 06/14/16 07:00 98.2 97 18 162/61 98.2 Intake and Output 06/14/16 07:00 Intake Total 1603.75 ml Output Total 2550 ml Balance -946.25 ml Intake Oral 760 ml IV Total 300 ml Blood Product IV Normal Saline Flush 543.75 ml Output Urine Total 2550 ml # Voids 1 # Bowel Movements 1 Physical Exam Abdomen: Normal bowel sounds, Soft Heart: Regular rate, Normal S1, Normal S2 Extremities: No clubbing General: No acute distress HEENT: EOMI Lungs: Normal air movement MUSCULOSKELETAL: Osteoarthritic changes both hands, Other Neck: Supple Neuro: Normal speech Psych/Mental Status: Mood NL Diagnosis Problem List Problems Medical Problems: (1) Altered mental status Status: Acute (2) COPD exacerbation Status: Acute (3) HCAP (healthcare-associated pneumonia) Status: Acute Assessment Assessment Problems Medical Problems: (1) Altered mental status Status: Acute (2) COPD exacerbation Status: Acute (3) HCAP (healthcare-associated pneumonia) Status: Acute FINAL IMPRESSION: tachycardia yesterday during blood infusion Anemia Hb 7.0 1. Acute chronic obstructive pulmonary disease with exacerbation. 2. Acute bronchitis. 3. Chronic recurrent sinusitis. 4. Chronic obstructive pulmonary disease with hypoxia. 5. Chronic anemia secondary to iron deficiency. 6. Hypokalemia. 7. History of brain aneurysm, recording done. 8. Smoking addiction. 9. Osteoporosis with compression fracture of the spine. 10. General debility and decline and protein-calorie malnutrition, moderate. PLAN: transfused 1u prbc. yesterday,had reaction, tachycardiac transferred to icu CT chest + Pneumonia. scarring in Lungs ,no lung mass. labs reviewed wbc elevated due to steroids and transfusion. echo today cardiology consult. At this time, admit to hospital, IV Solu-Medrol, oxygen and breathing treatments, IV Zosyn and vancomycin, CT chest, pulmonary consult, sputum cultures and breathing treatments to see how the patient's condition improves. Again, smoking counseling was done. Problems: Plan Plan of Care Problems Medical Problems: (1) Altered mental status Status: Acute (2) COPD exacerbation Status: Acute (3) HCAP (healthcare-associated pneumonia) Status: Acute Comment Review of Relevant I have reviewed the following items jeff (where applicable) has been applied. Labs Laboratory Tests Test 06/14/16 00:40 White Blood Count 24.0x10^3/uL (4.0-11.0) Red Blood Count 3.87x10^6/uL (3.50-5.40) Hemoglobin 8.4g/dL (12.0-15.5) Hematocrit 29.3% (36.0-47.0) Mean Corpuscular Volume 76fL (79-100) Mean Corpuscular Hemoglobin 22pg (25-35) Mean Corpuscular Hemoglobin Concent 29g/dL (31-37) Red Cell Distribution Width 20.5% (11.5-14.5) Platelet Count 629x10^3/uL (140-400) Neutrophils (%) (Auto) 97% (31-73) Lymphocytes (%) (Auto) 2% (24-48) Monocytes (%) (Auto) 2% (0-9) Eosinophils (%) (Auto) 0% (0-3) Basophils (%) (Auto) 0% (0-3) Neutrophils # (Auto) 23.2x10^3uL (1.8-7.7) Lymphocytes # (Auto) 0.4x10^3/uL (1.0-4.8) Monocytes # (Auto) 0.4x10^3/uL (0.0-1.1) Eosinophils # (Auto) 0.0x10^3/uL (0.0-0.7) Basophils # (Auto) 0.0x10^3/uL (0.0-0.2) Segmented Neutrophils % 96% (35-66) Band Neutrophils % 1% (0-9) Lymphocytes % 2% (24-48) Monocytes % 1% (0-10) Platelet Estimate Increased (ADEQUATE) Erythrocyte Sedimentation Rate 30 (0-25) Sodium Level 138mmol/L (136-145) Potassium Level 4.0mmol/L (3.5-5.1) Chloride Level 97mmol/L (98-107) Carbon Dioxide Level 34mmol/L (21-32) Anion Gap 7 (6-14) Blood Urea Nitrogen 16mg/dL (7-20) Creatinine 0.7mg/dL (0.6-1.0) Estimated GFR (Cockcroft-Gault) 83.0 BUN/Creatinine Ratio 23 (6-20) Glucose Level 223mg/dL (70-99) Calcium Level 8.6mg/dL (8.5-10.1) Total Bilirubin 0.3mg/dL (0.2-1.0) Aspartate Amino Transf (AST/SGOT) 20U/L (15-37) Alanine Aminotransferase (ALT/SGPT) 35U/L (14-59) Alkaline Phosphatase 81U/L (46-116) Total Protein 6.7g/dL (6.4-8.2) Albumin 2.8g/dL (3.4-5.0) Albumin/Globulin Ratio 0.7 (1.0-1.7) Vancomycin Level Trough 2.1mcg/mL (10.0-20.0) Vancomycin Last Dose Date Vancomycin Last Dose Time 129 Microbiology 06/12/16 Blood Culture - Preliminary, Resulted NO GROWTH AFTER 2 DAYS Medications Current Medications Furosemide (Lasix) 40 mg 1X ONCE IVP Last administered on 06/13/16 14:18; Start 06/13/16 at 13:45; Stop 06/13/16 at 13:46; Status DC Lorazepam 0.5 mg 0.5 mg 1X ONCE PO Last administered on 06/14/16 00:59; Start 06/14/16 at 01:00; Stop 06/14/16 at 01:01; Status DC Vancomycin HCl 1 each 1X ONCE MC Last administered on 06/14/16 01:00; Start 06/14/16 at 01:00; Stop 06/14/16 at 01:01; Status DC Vancomycin HCl 1 each 1X ONCE MC ; Start 06/16/16 at 08:30; Stop 06/16/16 at 08 :31 Vancomycin HCl 1 each 1 each 1X ONCE MC ; Start 06/16/16 at 01:30; Stop at 01:31; Status Cancel Vancomycin HCl/ Sodium Chloride (Iv Sodium Chloride 0.9% 250ml) 250 ml @ 167 mls/hr Q24H IV Last administered on 06/14/16 02:05; Start 06/14/16 at 02:00; Stop 06/14/16 at 08:38; Status DC Vancomycin HCl/ Sodium Chloride (Iv Sodium Chloride 0.9% 250ml) 250 ml @ 250 mls/hr Q12H IV ; Start 06/14/16 at 21:00 Vitals/I & O Vital Sign - Last 24 Hours 06/13/16 06/13/16 06/13/16 06/13/16 11:06 11:09 11:23 11:45 Temp 98.1 98.1 98.5 98.1 98.1 98.5 Pulse 101 99 98 Resp 18 18 18 B/P 149/87 149/87 144/75 Pulse Ox 95 98 O2 Delivery Nasal Cannula Nasal Cannula O2 Flow Rate 3.0 3.0 06/13/16 06/13/16 06/13/16 06/13/16 12:11 13:03 15:33 15:42 Temp 98.3 98.3 98.3 98.3 98.3 98.3 Pulse 94 130 105 Resp 20 20 20 B/P 143/78 157/88 133/74 Pulse Ox 98 98 O2 Delivery Nasal Cannula Nasal Cannula O2 Flow Rate 3.0 3.0 06/13/16 06/13/16 06/13/16 06/13/16 19:00 19:31 19:33 20:20 Temp 98.2 98.2 Pulse 120 Resp 33 B/P 129/51 Pulse Ox 93 93 O2 Delivery Nasal Cannula Nasal Cannula Nasal Cannula Nasal Cannula O2 Flow Rate 3.0 3.0 3.0 3.0 06/13/16 06/13/16 06/14/16 06/14/16 21:20 23:00 03:00 07:00 Temp 98.0 98.2 98.2 98.0 98.2 98.2 Pulse 99 96 97 Resp 24 24 16 18 B/P 160/72 163/70 162/61 Pulse Ox 93 92 97 97 O2 Delivery Nasal Cannula Nasal Cannula Nasal Cannula Nasal Cannula O2 Flow Rate 3.0 3.0 3.0 3.0 06/14/16 06/14/16 07:28 08:00 Pulse Ox 99 O2 Delivery Nasal Cannula Nasal Cannula O2 Flow Rate 3.0 3.0 Intake and Output 06/13/16 06/13/16 06/14/16 15:00 23:00 07:00 Intake Total 663.75 ml 940 ml Output Total 1650 ml 900 ml Balance 663.75 ml -1650 ml 40 ml Nutrition Consultation Dietary Evaluation: Recommendations by RD: Increase Calorie Intake, Protein supplementation Comments: boost plus tid Expected Outcomes/Goals: to meet > 75% est nutr needs Malnutrition Findings: Muscle Mass (Severe): Severe Depletion Body Fat Depletion (Non Severe: Mod to Severe Reduced Pharmacovigilance Specialist Strength: N/A Weight Status: Underweight Fluid Accumulation (N/A): N/A TRICIA PERRY MD Jun 14, 2016 10:38
[2016-06-14] MEDS: IV NORMAL SALINE 1000ML BAG 1,000 ML IV SCH (10:50)
[2016-06-14] MEDS: PROMETH/CODEINE 6.25/10MG 5 ML SYRUP. PO PRN (10:52)
--- NOTE | 2016-06-14 10:59 | PDOC2 ---
CONSULT Date of Consult Date of Consult DATE: 06/14/16 TIME: 10:56 Reason for Consult Reason for Consult: Tachycardia Referring Physician Referring Physician: Dr Salomon Identification/Chief Complaint Chief Complaint Tachycardia, shortness of breath History of Present Illness Reason for Visit: Patient seen and examined this morning while seated upright in bed. She states that she did not "feel right" during transfusion yesterday, but has no persisting symptoms this morning. Denies any cardiac complaints, states she had some edema in her feet yesterday which has since resolved. She is currently on antibiotics for pneumonia. Does not take any cardiac medications on a regular basis. Denies any chest pains, shortness of breath more than her usual, or edema today. Current Problem List Problem List Problems Medical Problems: (1) Altered mental status Status: Acute (2) COPD exacerbation Status: Acute (3) HCAP (healthcare-associated pneumonia) Status: Acute Current Medications Current Medications Current Medications Piperacillin Sod/ Tazobactam Sod/ Sodium Chloride (Zosyn/Iv Sodium Chloride 0.9 % 100ml) 100 ml @ 200 mls/hr Q6HRS IV ; Start 06/12/16 at 00:00; Status UNV Vancomycin HCl (Vanco Per Pharmacy) 1 each PRN DAILY PRN MC SEE COMMENTS Last administered on 06/14/16 08:15; Start 06/11/16 at 23:30 Methylprednisolone Sodium Succinate (Solu-Medrol 125mg Vial) 125 mg 1X ONCE IV Last administered on 06/11/16 23:32; Start 06/11/16 at 23:30; Stop 06/11/16 at 23:31; Status DC Albuterol/ Ipratropium 3 ml 3 ml 1X ONCE NEB Last administered on 06/11/16 23 :26; Start 06/11/16 at 23:30; Stop 06/11/16 at 23:31; Status DC Piperacillin Sod/ Tazobactam Sod/ Sodium Chloride (Zosyn/Iv Sodium Chloride 0.9 % 50ml) 50 ml @ 100 mls/hr Q6HRS IV Last administered on 06/14/16 06:14; Start 06/12/16 at 00:00 Ondansetron HCl (Zofran) 4 mg PRN Q8HRS PRN IV NAUSEA/VOMITING; Start 06/12/16 at 00:30; Stop 06/13/16 at 00:29; Status DC Acetaminophen (Tylenol) 650 mg PRN Q4HRS PRN PO FEVER; Start 06/12/16 at 00:30 ; Stop 06/13/16 at 00:29; Status DC Albuterol/ Ipratropium (Duoneb) 3 ml RTQID NEB Last administered on 06/12/16 08:22; Start 06/12/16 at 08:00; Stop 06/12/16 at 10:09; Status DC Methylprednisolone Sodium Succinate 40 mg 40 mg Q12HR IV Last administered on 09:14; Start 06/12/16 at 09:00 Vancomycin HCl 1 gm/Sodium Chloride 250 ml @ 250 mls/hr ONCE ONCE IV Last administered on 06/12/16 01:22; Start 06/12/16 at 01:30; Stop 06/12/16 at 02:29 ; Status DC Vancomycin HCl/ Sodium Chloride (Iv Sodium Chloride 0.9% 100ml) 100 ml @ 100 mls/hr Q24H IV Last administered on 06/13/16 01:15; Start 06/13/16 at 01:30; Stop 06/14/16 at 01:46; Status DC Vancomycin HCl 1 each 1X ONCE MC Last administered on 06/14/16 01:00; Start 06/14/16 at 01:00; Stop 06/14/16 at 01:01; Status DC Albuterol Sulfate (Ventolin Neb Soln) 2.5 mg PRN QID PRN NEB WHEEZING; Start at 10:00 Aspirin (Ecotrin) 81 mg DAILY PO Last administered on 06/14/16 09:12; Start at 12:00 Ferrous Sulfate (Feosol) 325 mg DAILY PO Last administered on 06/14/16 09:12; Start 06/12/16 at 12:00 Acetaminophen/ Hydrocodone Bitart (Lortab 7.5/325) 1 tab QID PO ; Start at 13:00; Stop 06/12/16 at 13:00; Status DC Budesonide (Pulmicort) 0.5 mg RTBID NEB Last administered on 06/14/16 07:28; Start 06/12/16 at 11:00 Albuterol/ Ipratropium (Duoneb) 3 ml RTQID NEB Last administered on 06/14/16 07:28; Start 06/12/16 at 12:00 Potassium Chloride (Klor-Con) 40 meq 1X ONCE PO Last administered on 10:31; Start 06/12/16 at 11:00; Stop 06/12/16 at 11:01; Status DC Acetaminophen/ Hydrocodone Bitart (Lortab 7.5/325) 1 tab PRN Q6HRS PRN PO MODERATE PAIN Last administered on 06/13/16 20:20; Start 06/12/16 at 10:30 Furosemide (Lasix) 40 mg 1X ONCE IVP Last administered on 06/13/16 14:18; Start 06/13/16 at 13:45; Stop 06/13/16 at 13:46; Status DC Lorazepam 0.5 mg 0.5 mg 1X ONCE PO Last administered on 06/14/16 00:59; Start 06/14/16 at 01:00; Stop 06/14/16 at 01:01; Status DC Vancomycin HCl/ Sodium Chloride (Iv Sodium Chloride 0.9% 250ml) 250 ml @ 167 mls/hr Q24H IV Last administered on 06/14/16 02:05; Start 06/14/16 at 02:00; Stop 06/14/16 at 08:38; Status DC Vancomycin HCl 1 each 1 each 1X ONCE MC ; Start 06/16/16 at 01:30; Stop at 01:31; Status Cancel Vancomycin HCl/ Sodium Chloride (Iv Sodium Chloride 0.9% 250ml) 250 ml @ 250 mls/hr Q12H IV ; Start 06/14/16 at 21:00 Vancomycin HCl 1 each 1X ONCE MC ; Start 06/16/16 at 08:30; Stop 06/16/16 at 08 :31 Promethazine HCl/ Codeine 5 ml 5 ml PRN Q6HRS PRN PO COUGH Last administered on 06/14/16 10:52; Start 06/14/16 at 10:45 Sodium Chloride (Iv Sodium Chloride 0.9% 1000ml Bag) 1,000 ml @ 75 mls/hr [id number] IV Last administered on 06/14/16 10:50; Start 06/14/16 at 10:45 Active Scripts Active Doxycycline Monohydrate 100 Mg Capsule 1 Cap PO BID Prednisone 50 Mg Tablet 50 Mg PO DAILY Prednisone 20 Mg Tablet 40 Mg PO DAILY Reported Albuterol Sulfate Neb Soln (Albuterol Sulfate) 2.5 Mg/3 Ml Vial.neb 2.5 Mg NEB [place] (Multivitamin W/Iron, Minerals) 1 Each Tablet 1 Each PO Ventolin Hfa Inhaler (Albuterol Sulfate) 18 Gm Hfa.aer.ad 2 Puff INH Q4HRS Iron (Ferrous Sulfate) 325 Mg Tablet 325 Mg PO Aspirin Ec (Aspirin) 81 Mg Tablet.dr 81 Mg PO Hydrocodone-Apap 7.5-325 (Hydrocodone Bit/Acetaminophen) 1 Each Tablet 1 Each PO Calcium 600 + Vit D 200 Tablet (Calcium Carbonate/Vitamin D3) 1 Each Tablet 1 Each PO Symbicort 160-4.5 Mcg Inhaler (Budesonide/Formoterol Fumarate) 10.2 Gm Hfa.aer.ad 10.2 Gm IH Spiriva (Tiotropium [place]) 18 Mcg Cap.w.dev 18 Mcg IH Allergies Allergies: Coded Allergies: No Known Medication Allergies (Verified Allergy, Unknown, 05/19/16) Uncoded Allergies: MRI (Adverse Reaction, Severe, PT HAS ANEURYSM COIL, 05/19/16) Physical Exam General: Alert, Cooperative, No acute distress Lungs: Other (Wheezes, rhonchi b/l) Heart: Other (Tachycardic in 110's) Extremities: No edema Vitals VITALS Vital Signs Date Time Temp Pulse Resp B/P Pulse Ox O2 Delivery O2 Flow Rate FiO2 06/14/16 08:00 Nasal Cannula 3.0 06/14/16 07:28 99 06/14/16 07:00 98.2 97 18 162/61 98.2 Labs Labs Laboratory Tests Test 06/13/16 05:15 06/14/16 00:40 White Blood Count 13.1x10^3/uL (4.0-11.0) 24.0x10^3/uL (4.0-11.0) Red Blood Count 3.23x10^6/uL (3.50-5.40) 3.87x10^6/uL (3.50-5.40) Hemoglobin 7.0g/dL (12.0-15.5) 8.4g/dL (12.0-15.5) Hematocrit 23.9% (36.0-47.0) 29.3% (36.0-47.0) Mean Corpuscular Volume 74fL (79-100) 76fL (79-100) Mean Corpuscular Hemoglobin 22pg (25-35) 22pg (25-35) Mean Corpuscular Hemoglobin Concent 29g/dL (31-37) 29g/dL (31-37) Red Cell Distribution Width 20.2% (11.5-14.5) 20.5% (11.5-14.5) Platelet Count 565x10^3/uL (140-400) 629x10^3/uL (140-400) Neutrophils (%) (Auto) 90% (31-73) 97% (31-73) Lymphocytes (%) (Auto) 5% (24-48) 2% (24-48) Monocytes (%) (Auto) 4% (0-9) 2% (0-9) Eosinophils (%) (Auto) 0% (0-3) 0% (0-3) Basophils (%) (Auto) 0% (0-3) 0% (0-3) Neutrophils # (Auto) 11.8x10^3uL (1.8-7.7) 23.2x10^3uL (1.8-7.7) Lymphocytes # (Auto) 0.7x10^3/uL (1.0-4.8) 0.4x10^3/uL (1.0-4.8) Monocytes # (Auto) 0.6x10^3/uL (0.0-1.1) 0.4x10^3/uL (0.0-1.1) Eosinophils # (Auto) 0.0x10^3/uL (0.0-0.7) 0.0x10^3/uL (0.0-0.7) Basophils # (Auto) 0.0x10^3/uL (0.0-0.2) 0.0x10^3/uL (0.0-0.2) Segmented Neutrophils % 89% (35-66) 96% (35-66) Lymphocytes % 7% (24-48) 2% (24-48) Monocytes % 4% (0-10) 1% (0-10) Platelet Estimate Increased (ADEQUATE) Increased (ADEQUATE) Large Platelets Present Hypochromasia Marked Anisocytosis Present Microcytosis Present Sodium Level 141mmol/L (136-145) 138mmol/L (136-145) Potassium Level 4.3mmol/L (3.5-5.1) 4.0mmol/L (3.5-5.1) Chloride Level 100mmol/L (98-107) 97mmol/L (98-107) Carbon Dioxide Level 37mmol/L (21-32) 34mmol/L (21-32) Anion Gap 4 (6-14) 7 (6-14) Blood Urea Nitrogen 11mg/dL (7-20) 16mg/dL (7-20) Creatinine 0.4mg/dL (0.6-1.0) 0.7mg/dL (0.6-1.0) Estimated GFR (Cockcroft-Gault) 158.3 83.0 Glucose Level 93mg/dL (70-99) 223mg/dL (70-99) Calcium Level 8.6mg/dL (8.5-10.1) 8.6mg/dL (8.5-10.1) Band Neutrophils % 1% (0-9) Erythrocyte Sedimentation Rate 30 (0-25) BUN/Creatinine Ratio 23 (6-20) Total Bilirubin 0.3mg/dL (0.2-1.0) Aspartate Amino Transf (AST/SGOT) 20U/L (15-37) Alanine Aminotransferase (ALT/SGPT) 35U/L (14-59) Alkaline Phosphatase 81U/L (46-116) Total Protein 6.7g/dL (6.4-8.2) Albumin 2.8g/dL (3.4-5.0) Albumin/Globulin Ratio 0.7 (1.0-1.7) Vancomycin Level Trough 2.1mcg/mL (10.0-20.0) Vancomycin Last Dose Date [id number] Vancomycin Last Dose Time 129 Laboratory Tests Test 06/14/16 00:40 White Blood Count 24.0x10^3/uL (4.0-11.0) Red Blood Count 3.87x10^6/uL (3.50-5.40) Hemoglobin 8.4g/dL (12.0-15.5) Hematocrit 29.3% (36.0-47.0) Mean Corpuscular Volume 76fL (79-100) Mean Corpuscular Hemoglobin 22pg (25-35) Mean Corpuscular Hemoglobin Concent 29g/dL (31-37) Red Cell Distribution Width 20.5% (11.5-14.5) Platelet Count 629x10^3/uL (140-400) Neutrophils (%) (Auto) 97% (31-73) Lymphocytes (%) (Auto) 2% (24-48) Monocytes (%) (Auto) 2% (0-9) Eosinophils (%) (Auto) 0% (0-3) Basophils (%) (Auto) 0% (0-3) Neutrophils # (Auto) 23.2x10^3uL (1.8-7.7) Lymphocytes # (Auto) 0.4x10^3/uL (1.0-4.8) Monocytes # (Auto) 0.4x10^3/uL (0.0-1.1) Eosinophils # (Auto) 0.0x10^3/uL (0.0-0.7) Basophils # (Auto) 0.0x10^3/uL (0.0-0.2) Segmented Neutrophils % 96% (35-66) Band Neutrophils % 1% (0-9) Lymphocytes % 2% (24-48) Monocytes % 1% (0-10) Platelet Estimate Increased (ADEQUATE) Erythrocyte Sedimentation Rate 30 (0-25) Sodium Level 138mmol/L (136-145) Potassium Level 4.0mmol/L (3.5-5.1) Chloride Level 97mmol/L (98-107) Carbon Dioxide Level 34mmol/L (21-32) Anion Gap 7 (6-14) Blood Urea Nitrogen 16mg/dL (7-20) Creatinine 0.7mg/dL (0.6-1.0) Estimated GFR (Cockcroft-Gault) 83.0 BUN/Creatinine Ratio 23 (6-20) Glucose Level 223mg/dL (70-99) Calcium Level 8.6mg/dL (8.5-10.1) Total Bilirubin 0.3mg/dL (0.2-1.0) Aspartate Amino Transf (AST/SGOT) 20U/L (15-37) Alanine Aminotransferase (ALT/SGPT) 35U/L (14-59) Alkaline Phosphatase 81U/L (46-116) Total Protein 6.7g/dL (6.4-8.2) Albumin 2.8g/dL (3.4-5.0) Albumin/Globulin Ratio 0.7 (1.0-1.7) Vancomycin Level Trough 2.1mcg/mL (10.0-20.0) Vancomycin Last Dose Date [id number] Vancomycin Last Dose Time 013 Assessment/Plan Assessment/Plan Tachycardia COPD exacerbation Possible transfusion reaction. This patient denies any previous cardiac problems we will get an echocardiogram to evaluate the present left ventricular function. Thank you very much for asking me to participate in the care of this patient LATHA ANDREWS MD Jun 14, 2016 10:59
[2016-06-14 11:00] VITALS: BP 148/56
[2016-06-14] MEDS: HYDROCODONE/APAP 7.5/325MG TABLET. PO PRN ×2 (14:33→20:52)
[2016-06-14 15:00] VITALS: BP 150/69
--- NOTE | 2016-06-14 18:16 | CARD ---
APPROVED REPORT EXAM: Two-dimensional and M-mode echocardiogram with Doppler and color Doppler. Other Information Quality : GoodHR: 116bpm Rhythm : Tachycardia INDICATION Sinus tachycardia 2D DIMENSIONS RVDd2.5 (2.9-3.5cm)Left Atrium(2D)2.9 (1.6-4.0cm) IVSd1.3 (0.7-1.1cm)Aortic Root(2D)2.7 (2.0-3.7cm) LVDd4.0 (3.9-5.9cm)LVOT Diameter2.0 (1.8-2.4cm) PWd1.2 (0.7-1.1cm)LVDs2.5 (2.5-4.0cm) FS (%) 38.4 %SV49.7 ml LVEF(%)65.0 (>50%) Aortic Valve AoV Peak Johan.216.7cm/sAoV VTI36.7cm AO Peak GR.18.8mmHgLVOT VTI 24.11cm AO Mean GR.11mmHgAI P 1/2 [id number] Mitral Valve MV E Velocity3.7cm/sMV E Peak Gr.14mmHg MV E Mean Gr.5mmHg TDI Lateral E' P. V5.51cm/sMedial E' P. V6.64cm/s E/Lateral E'0.7E/Medial E'0.6 Tricuspid Valve TR P. [id number]/sRAP [id number] TR Peak Gr.[id number] Pulmonary Vein S1 Nrzapjlm41.0cm/sS2 Xjdhnjpy73.16cm/s D2 Jquzgaxf79.2cm/sPVa [id number] LEFT VENTRICLE The left ventricle is normal size. There is mild concentric left ventricular hypertrophy. The left ve ntricular systolic function is normal and the ejection fraction is within normal range. The Ejection Fraction is 65%. There is normal LV segmental wall motion. Transmitral Doppler flow pattern is probab ly grade I-abnormal relaxation pattern. RIGHT VENTRICLE The right ventricle is normal size. There is normal right ventricular wall thickness. The right ventr icular systolic function is normal. ATRIA The left atrium is mildly dilated. The right atrium size is normal. The interatrial septum is intact with no evidence for an atrial septal defect or patent foramen ovale as noted on 2-D or Doppler imagi ng. AORTIC VALVE The aortic valve is mildly sclerotic. The aortic valve is trileaflet. Doppler and Color Flow revealed mild to moderate aortic regurgitation. There is no significant aortic valvular stenosis. MITRAL VALVE Mitral annular calcification is mild. The mitral valve leaflets are thickened. There is no evidence o f mitral valve prolapse. There is no mitral valve stenosis. Doppler and Color Flow revealed mild mitr al valve regurgitation. TRICUSPID VALVE Doppler and Color Flow revealed mild tricuspid regurgitation. The pulmonary artery systolic pressure is estimated at 49 mmHg. There is moderate pulmonary hypertension. PULMONIC VALVE The pulmonary valve is normal in structure and function. Doppler and Color Flow revealed no pulmonic valvular regurgitation. GREAT VESSELS The aortic root is normal in size. The ascending aorta is normal in size. The pulmonary artery is nor mal. The IVC is normal in size and collapses >50% with inspiration. PERICARDIAL EFFUSION There is a very small pericardial effusion. Critical Notification Critical Value: No <Conclusion> There is mild concentric left ventricular hypertrophy. The left ventricular systolic function is normal and the ejection fraction is within normal range. The Ejection Fraction is 65%. Transmitral Doppler flow pattern is probably grade I-abnormal relaxation pattern. The left atrium is mildly dilated. The right atrium size is normal. The aortic valve is mildly sclerotic. The aortic valve is trileaflet. Doppler and Color Flow revealed mild to moderate aortic regurgitation. Mitral annular calcification is mild. The mitral valve leaflets are thickened. Doppler and Color Flow revealed mild mitral valve regurgitation. Doppler and Color Flow revealed mild tricuspid regurgitation. The pulmonary artery systolic pressure is estimated at 49 mmHg. There is moderate pulmonary hypertension. The pulmonary valve is normal in structure and function. There is a very small pericardial effusion.
[2016-06-14 19:00] VITALS: BP 129/65
[2016-06-14] MEDS: VANCOMYCIN 750 MG in IV NORMAL SALINE 250ML 250 ML IV SCH (20:51)
[2016-06-14] MEDS: LORAZEPAM 0.5 MG TABLET. PO PRN (20:52)
[2016-06-14 23:00] VITALS: BP 165/61
[2016-06-15] MEDS: IV NORMAL SALINE 1000ML BAG 1,000 ML IV SCH ×2 (00:05→18:22)
[2016-06-15] MEDS: PIPERACILLIN/TAZOBACTAM 2.25 GM in IV NORMAL SALINE 50ML 50 ML IV SCH ×5 (00:16→23:57)
[2016-06-15 03:00] VITALS: BP 145/61
[2016-06-15 07:30] VITALS: BP 151/66
[2016-06-15] MEDS: BUDESONIDE 0.5 MG/2 ML NEBU. NEB SCH ×2 (07:46→20:11)
[2016-06-15] MEDS: IPRATRPIUM/ALBUTEROL 0.5/2.5MG 3 ML NEBU. NEB SCH ×4 (07:46→20:11)
[2016-06-15 07:48] LABS: BASO % 0 % (0-3); EOS % 0 % (0-3); HEMATOCRIT 24.2 % (36.0-47.0); HEMOGLOBIN 7.1 g/dL (12.0-15.5); LYMPH # 0.6 x10^3/uL (1.0-4.8); LYMPH % 5 % (24-48); MEAN CORPUSCULAR HEMOGLOBIN 22 pg (25-35); MEAN CORPUSCULAR HGB CONC 29 g/dL (31-37); MEAN CORPUSCULAR VOLUME 75 fL (79-100); MONO % 6 % (0-9); NEUT % 90 % (31-73); PLATELET COUNT 578 x10^3/uL (140-400); RED BLOOD COUNT 3.23 x10^6/uL (3.50-5.40); RED CELL DISTRIBUTION WIDTH 20.3 % (11.5-14.5); WHITE BLOOD COUNT 14.2 x10^3/uL (4.0-11.0)
[2016-06-15 07:53] LABS: CALCIUM 8.1 mg/dL (8.5-10.1); CREATININE 0.4 mg/dL (0.6-1.0); GFR 158.3; POTASSIUM 3.3 mmol/L (3.5-5.1)
[2016-06-15] MEDS: VANCOMYCIN PER PHARMACY MC PRN (08:13)
--- NOTE | 2016-06-15 09:15 | PDOC ---
PULMONARY PROGRESS NOTES Subjective pt not more soa Vitals Vital Signs Date Time Temp Pulse Resp B/P Pulse Ox O2 Delivery O2 Flow Rate FiO2 06/15/16 07:48 98 Nasal Cannula 3.0 06/15/16 07:30 97.4 98 16 151/66 97.4 ROS: No Nausea, No Chest Pain, No Abdominal Pain, No Increase Cough General: Alert Lungs: Crackles Cardiovascular: S1, S2 Abdomen: Soft Neuro Exam: Alert Extremities: No Edema Skin: Warm Labs Laboratory Tests Test 06/14/16 00:40 06/15/16 07:20 White Blood Count 24.0x10^3/uL (4.0-11.0) 14.2x10^3/uL (4.0-11.0) Red Blood Count 3.87x10^6/uL (3.50-5.40) 3.23x10^6/uL (3.50-5.40) Hemoglobin 8.4g/dL (12.0-15.5) 7.1g/dL (12.0-15.5) Hematocrit 29.3% (36.0-47.0) 24.2% (36.0-47.0) Mean Corpuscular Volume 76fL (79-100) 75fL (79-100) Mean Corpuscular Hemoglobin 22pg (25-35) 22pg (25-35) Mean Corpuscular Hemoglobin Concent 29g/dL (31-37) 29g/dL (31-37) Red Cell Distribution Width 20.5% (11.5-14.5) 20.3% (11.5-14.5) Platelet Count 629x10^3/uL (140-400) 578x10^3/uL (140-400) Neutrophils (%) (Auto) 97% (31-73) 90% (31-73) Lymphocytes (%) (Auto) 2% (24-48) 5% (24-48) Monocytes (%) (Auto) 2% (0-9) 6% (0-9) Eosinophils (%) (Auto) 0% (0-3) 0% (0-3) Basophils (%) (Auto) 0% (0-3) 0% (0-3) Neutrophils # (Auto) 23.2x10^3uL (1.8-7.7) 12.7x10^3uL (1.8-7.7) Lymphocytes # (Auto) 0.4x10^3/uL (1.0-4.8) 0.6x10^3/uL (1.0-4.8) Monocytes # (Auto) 0.4x10^3/uL (0.0-1.1) 0.8x10^3/uL (0.0-1.1) Eosinophils # (Auto) 0.0x10^3/uL (0.0-0.7) 0.0x10^3/uL (0.0-0.7) Basophils # (Auto) 0.0x10^3/uL (0.0-0.2) 0.0x10^3/uL (0.0-0.2) Segmented Neutrophils % 96% (35-66) Band Neutrophils % 1% (0-9) Lymphocytes % 2% (24-48) Monocytes % 1% (0-10) Platelet Estimate Increased (ADEQUATE) Erythrocyte Sedimentation Rate 30 (0-25) Sodium Level 138mmol/L (136-145) 141mmol/L (136-145) Potassium Level 4.0mmol/L (3.5-5.1) 3.3mmol/L (3.5-5.1) Chloride Level 97mmol/L (98-107) 101mmol/L (98-107) Carbon Dioxide Level 34mmol/L (21-32) 36mmol/L (21-32) Anion Gap 7 (6-14) 4 (6-14) Blood Urea Nitrogen 16mg/dL (7-20) 10mg/dL (7-20) Creatinine 0.7mg/dL (0.6-1.0) 0.4mg/dL (0.6-1.0) Estimated GFR (Cockcroft-Gault) 83.0 158.3 BUN/Creatinine Ratio 23 (6-20) Glucose Level 223mg/dL (70-99) 143mg/dL (70-99) Calcium Level 8.6mg/dL (8.5-10.1) 8.1mg/dL (8.5-10.1) Total Bilirubin 0.3mg/dL (0.2-1.0) Aspartate Amino Transf (AST/SGOT) 20U/L (15-37) Alanine Aminotransferase (ALT/SGPT) 35U/L (14-59) Alkaline Phosphatase 81U/L (46-116) Total Protein 6.7g/dL (6.4-8.2) Albumin 2.8g/dL (3.4-5.0) Albumin/Globulin Ratio 0.7 (1.0-1.7) Vancomycin Level Trough 2.1mcg/mL (10.0-20.0) Vancomycin Last Dose Date [id number] Vancomycin Last Dose Time 129 Laboratory Tests Test 06/15/16 07:20 White Blood Count 14.2x10^3/uL (4.0-11.0) Red Blood Count 3.23x10^6/uL (3.50-5.40) Hemoglobin 7.1g/dL (12.0-15.5) Hematocrit 24.2% (36.0-47.0) Mean Corpuscular Volume 75fL (79-100) Mean Corpuscular Hemoglobin 22pg (25-35) Mean Corpuscular Hemoglobin Concent 29g/dL (31-37) Red Cell Distribution Width 20.3% (11.5-14.5) Platelet Count 578x10^3/uL (140-400) Neutrophils (%) (Auto) 90% (31-73) Lymphocytes (%) (Auto) 5% (24-48) Monocytes (%) (Auto) 6% (0-9) Eosinophils (%) (Auto) 0% (0-3) Basophils (%) (Auto) 0% (0-3) Neutrophils # (Auto) 12.7x10^3uL (1.8-7.7) Lymphocytes # (Auto) 0.6x10^3/uL (1.0-4.8) Monocytes # (Auto) 0.8x10^3/uL (0.0-1.1) Eosinophils # (Auto) 0.0x10^3/uL (0.0-0.7) Basophils # (Auto) 0.0x10^3/uL (0.0-0.2) Sodium Level 141mmol/L (136-145) Potassium Level 3.3mmol/L (3.5-5.1) Chloride Level 101mmol/L (98-107) Carbon Dioxide Level 36mmol/L (21-32) Anion Gap 4 (6-14) Blood Urea Nitrogen 10mg/dL (7-20) Creatinine 0.4mg/dL (0.6-1.0) Estimated GFR (Cockcroft-Gault) 158.3 Glucose Level 143mg/dL (70-99) Calcium Level 8.1mg/dL (8.5-10.1) Medications Active Scripts Medications Dose Route/Sig Days Date Category Doxycycline Monohydrate 100 Mg Capsule 1 Cap PO BID 05/19/16 Rx Prednisone 50 Mg Tablet 50 Mg PO DAILY 05/19/16 Rx Prednisone 20 Mg Tablet 40 Mg PO DAILY 05/11/14 Rx Albuterol Sulfate Neb Soln (Albuterol Sulfate) 2.5 Mg/3 Ml Vial.neb 2.5 Mg NEB 09/30/13 Reported Central Donte For Seniors (Multivitamin W/Iron, Minerals) 1 Each Tablet 1 Each PO 09/30/13 Reported Ventolin Hfa Inhaler (Albuterol Sulfate) 18 Gm Hfa.aer.ad 2 Puff INH Q4HRS 09/30/13 Reported Iron (Ferrous Sulfate) 325 Mg Tablet 325 Mg PO 09/30/13 Reported Aspirin Ec (Aspirin) 81 Mg Tablet.dr 81 Mg PO 09/30/13 Reported Hydrocodone-Apap 7.5-325 (Hydrocodone Bit/Acetaminophen) 1 Each Tablet 1 Each PO 05/24/13 Reported Calcium 600 + Vit D 200 Tablet (Calcium Carbonate/Vitamin D3) 1 Each Tablet 1 Each PO 05/24/13 Reported Symbicort 160-4.5 Mcg Inhaler (Budesonide/Formoterol Fumarate) 10.2 Gm Hfa.aer.ad 10.2 Gm IH 05/24/13 Reported Spiriva (Tiotropium [place]) 18 Mcg Cap.w.dev 18 Mcg IH 05/24/13 Reported Impression . IMPRESSION: 1. Acute on chronic hypoxic respiratory failure secondary to underlying chronic obstructive pulmonary disease, mild bronchiectasis in the right upper lobe and also in new left upper lobe pneumonia. 2. Abnormal CT chest with severe emphysematous changes along with bronchiectasis in the right upper lobe and a new left upper lobe consolidation. 3. Leukocytosis secondary to pneumonia. 4. Worsening L2 compression fracture with chronic back pain. 5. Possible blood transfusion reaction Plan . home in am per Dr Salomon cxr reviewed no new infiltrates no sign of pulmonary edema 1. Continue with present broad spectrum antibiotics to cover for gram-negative and gram-positive organisms. 2. Continue DuoNeb. 3. Continue IV Solu-Medrol with gradual taper. 4. Repeat chest x-ray in few days. 5. hold further transfusion KENYON BARRON MD Jun 15, 2016 09:15
[2016-06-15] MEDS: FERROUS SULFATE 325 MG TABLET PO SCH (09:26)
[2016-06-15] MEDS: ASPIRIN ENTERIC COATED 81 MG TABLET.DR. PO SCH (09:26)
[2016-06-15] MEDS: methylPREDNISolone SOD SUCC PF 40 MG/ML VIAL. IV SCH ×2 (09:26→22:17)
[2016-06-15] MEDS: VANCOMYCIN 750 MG in IV NORMAL SALINE 250ML 250 ML IV SCH ×2 (09:28→22:16)
--- NOTE | 2016-06-15 10:33 | PDOC ---
PROGRESS NOTES Subjective Subjective pt feeling better ,want to go home today Objective Objective Vital Signs Date Time Temp Pulse Resp B/P Pulse Ox O2 Delivery O2 Flow Rate FiO2 06/15/16 07:48 98 Nasal Cannula 3.0 06/15/16 07:30 97.4 98 16 151/66 97.4 Intake and Output 06/15/16 07:00 Intake Total 1130 ml Output Total 1460 ml Balance -330 ml Intake Oral 830 ml IV Total 300 ml Output Urine Total 1460 ml # Bowel Movements 1 Physical Exam Abdomen: Normal bowel sounds, Soft Heart: Other (Tachycardic in 110's) Extremities: No edema General: Alert, Cooperative, No acute distress HEENT: EOMI Lungs: Other (Wheezes, rhonchi b/l) MUSCULOSKELETAL: Osteoarthritic changes both hands, Other Neck: Supple Neuro: Normal speech Psych/Mental Status: Mood NL Diagnosis Problem List Problems Medical Problems: (1) Altered mental status Status: Acute (2) COPD exacerbation Status: Acute (3) HCAP (healthcare-associated pneumonia) Status: Acute Assessment Assessment Problems Medical Problems: (1) Altered mental status Status: Acute (2) COPD exacerbation Status: Acute (3) HCAP (healthcare-associated pneumonia) Status: Acute FINAL IMPRESSION: tachycardia yesterday during blood infusion Anemia Hb 7.0 1. Acute chronic obstructive pulmonary disease with exacerbation. 2. Acute bronchitis. 3. Chronic recurrent sinusitis. 4. Chronic obstructive pulmonary disease with hypoxia. 5. Chronic anemia secondary to iron deficiency. 6. Hypokalemia. 7. History of brain aneurysm, recording done. 8. Smoking addiction. 9. Osteoporosis with compression fracture of the spine. 10. General debility and decline and protein-calorie malnutrition, moderate. PLAN: iv antibiotics . spoke with family ,palliative team consult, poor prognosis transfused 1u prbc. yesterday,had reaction, tachycardiac transferred to icu CT chest + Pneumonia. scarring in Lungs ,no lung mass. labs reviewed wbc elevated due to steroids and transfusion. echo today cardiology consult. echo good LVF. cardizam for tachycardia Problems: Plan Plan of Care Problems Medical Problems: (1) Altered mental status Status: Acute (2) COPD exacerbation Status: Acute (3) HCAP (healthcare-associated pneumonia) Status: Acute Comment Review of Relevant I have reviewed the following items jeff (where applicable) has been applied. Labs Laboratory Tests Test 06/15/16 07:20 White Blood Count 14.2x10^3/uL (4.0-11.0) Red Blood Count 3.23x10^6/uL (3.50-5.40) Hemoglobin 7.1g/dL (12.0-15.5) Hematocrit 24.2% (36.0-47.0) Mean Corpuscular Volume 75fL (79-100) Mean Corpuscular Hemoglobin 22pg (25-35) Mean Corpuscular Hemoglobin Concent 29g/dL (31-37) Red Cell Distribution Width 20.3% (11.5-14.5) Platelet Count 578x10^3/uL (140-400) Neutrophils (%) (Auto) 90% (31-73) Lymphocytes (%) (Auto) 5% (24-48) Monocytes (%) (Auto) 6% (0-9) Eosinophils (%) (Auto) 0% (0-3) Basophils (%) (Auto) 0% (0-3) Neutrophils # (Auto) 12.7x10^3uL (1.8-7.7) Lymphocytes # (Auto) 0.6x10^3/uL (1.0-4.8) Monocytes # (Auto) 0.8x10^3/uL (0.0-1.1) Eosinophils # (Auto) 0.0x10^3/uL (0.0-0.7) Basophils # (Auto) 0.0x10^3/uL (0.0-0.2) Sodium Level 141mmol/L (136-145) Potassium Level 3.3mmol/L (3.5-5.1) Chloride Level 101mmol/L (98-107) Carbon Dioxide Level 36mmol/L (21-32) Anion Gap 4 (6-14) Blood Urea Nitrogen 10mg/dL (7-20) Creatinine 0.4mg/dL (0.6-1.0) Estimated GFR (Cockcroft-Gault) 158.3 Glucose Level 143mg/dL (70-99) Calcium Level 8.1mg/dL (8.5-10.1) Microbiology 06/13/16 Blood Culture - Preliminary, Resulted NO GROWTH AFTER 1 DAY Medications Current Medications Aspirin (Ecotrin) 81 mg DAILY PO Last administered on 06/15/16 09:26; Start at 06:31 Lorazepam (Ativan) 0.5 mg PRN QHS PRN PO ANXIETY / AGITATION Last administered on 06/14/16 20:52; Start 06/14/16 at 20:45 Promethazine HCl/ Codeine 5 ml 5 ml PRN Q6HRS PRN PO COUGH Last administered on 06/14/16 10:52; Start 06/14/16 at 10:45 Sodium Chloride (Iv Sodium Chloride 0.9% 1000ml Bag) 1,000 ml @ 75 mls/hr [id number] IV Last administered on 06/14/16 10:50; Start 06/14/16 at 10:45 Vancomycin HCl 1 each 1X ONCE MC ; Start 06/16/16 at 08:30; Stop 06/16/16 at 08 :31 Vancomycin HCl 1 each 1 each 1X ONCE MC ; Start 06/16/16 at 01:30; Stop at 01:31; Status Cancel Vancomycin HCl/ Sodium Chloride (Iv Sodium Chloride 0.9% 250ml) 250 ml @ 250 mls/hr Q12H IV Last administered on 06/15/16 09:28; Start 06/14/16 at 21:00 Vitals/I & O Vital Sign - Last 24 Hours 06/14/16 06/14/16 06/14/16 06/14/16 11:00 11:19 14:33 15:00 Temp 98.4 97.7 98.4 97.7 Pulse 111 115 Resp 22 24 B/P 148/56 150/69 Pulse Ox 99 98 95 O2 Delivery Nasal Cannula Nasal Cannula Nasal Cannula Nasal Cannula O2 Flow Rate 3.0 3.0 3.0 06/14/16 06/14/16 06/14/16 06/14/16 15:57 19:00 19:57 19:58 Temp 98.0 98.0 Pulse 120 Resp 26 B/P 129/65 Pulse Ox 98 95 98 98 O2 Delivery Nasal Cannula Nasal Cannula Nasal Cannula Nasal Cannula O2 Flow Rate 3.0 3.0 3.0 3.0 06/14/16 06/14/16 06/14/16 06/14/16 20:00 20:52 21:52 23:00 Temp 98.2 98.2 Pulse 100 Resp 24 B/P 165/61 Pulse Ox 98 98 95 O2 Delivery Nasal Cannula Nasal Cannula Nasal Cannula Nasal Cannula O2 Flow Rate 3.0 3.0 3.0 3.0 06/15/16 06/15/16 06/15/16 03:00 07:30 07:48 Temp 97.8 97.4 97.8 97.4 Pulse 97 98 Resp 18 16 B/P 145/61 151/66 Pulse Ox 96 95 98 O2 Delivery Nasal Cannula Nasal Cannula Nasal Cannula O2 Flow Rate 3.0 4.0 3.0 Intake and Output 06/14/16 06/14/16 06/15/16 15:00 23:00 07:00 Intake Total 480 ml 600 ml 50 ml Output Total 510 ml 950 ml Balance -30 ml 600 ml -900 ml Nutrition Consultation Dietary Evaluation: Recommendations by RD: Increase Calorie Intake, Protein supplementation Comments: boost plus tid Expected Outcomes/Goals: to meet > 75% est nutr needs Malnutrition Findings: Muscle Mass (Severe): Severe Depletion Body Fat Depletion (Non Severe: Mod to Severe Reduced [employer] Strength: N/A Weight Status: Underweight Fluid Accumulation (N/A): N/A TRICIA PERRY MD Jun 15, 2016 10:33
[2016-06-15 11:02] VITALS: BP 164/84
[2016-06-15] MEDS: PROMETH/CODEINE 6.25/10MG 5 ML SYRUP. PO PRN ×2 (12:11→20:34)
--- NOTE | 2016-06-15 13:24 | PDOC ---
PROGRESS NOTES Subjective Subjective Patient examined while seated in bed eating lunch with daughter and other family present. She denies any cardiac complaints today, states she feels she is breathing ok. Denies any edema. States plan is to possibly go home tomorrow. Objective Objective Vital Signs Date Time Temp Pulse Resp B/P Pulse Ox O2 Delivery O2 Flow Rate FiO2 06/15/16 12:00 98 Nasal Cannula 3.0 06/15/16 11:02 98.0 108 20 164/84 98.0 Intake and Output 06/15/16 07:00 Intake Total 1130 ml Output Total 1460 ml Balance -330 ml Intake Oral 830 ml IV Total 300 ml Output Urine Total 1460 ml # Bowel Movements 1 Physical Exam Heart: Other (Unchanged since last cardiac exam) Extremities: No edema General: Alert, Cooperative, No acute distress Lungs: Other (Wheezes b/l) Assessment Assessment Problems Medical Problems: (1) Altered mental status Status: Acute (2) COPD exacerbation Status: Acute (3) HCAP (healthcare-associated pneumonia) Status: Acute Plan Plan of Care Agree with present plan Comment Review of Relevant I have reviewed the following items jeff (where applicable) has been applied. Labs Laboratory Tests Test 06/14/16 00:40 06/15/16 07:20 White Blood Count 24.0x10^3/uL (4.0-11.0) 14.2x10^3/uL (4.0-11.0) Red Blood Count 3.87x10^6/uL (3.50-5.40) 3.23x10^6/uL (3.50-5.40) Hemoglobin 8.4g/dL (12.0-15.5) 7.1g/dL (12.0-15.5) Hematocrit 29.3% (36.0-47.0) 24.2% (36.0-47.0) Mean Corpuscular Volume 76fL (79-100) 75fL (79-100) Mean Corpuscular Hemoglobin 22pg (25-35) 22pg (25-35) Mean Corpuscular Hemoglobin Concent 29g/dL (31-37) 29g/dL (31-37) Red Cell Distribution Width 20.5% (11.5-14.5) 20.3% (11.5-14.5) Platelet Count 629x10^3/uL (140-400) 578x10^3/uL (140-400) Neutrophils (%) (Auto) 97% (31-73) 90% (31-73) Lymphocytes (%) (Auto) 2% (24-48) 5% (24-48) Monocytes (%) (Auto) 2% (0-9) 6% (0-9) Eosinophils (%) (Auto) 0% (0-3) 0% (0-3) Basophils (%) (Auto) 0% (0-3) 0% (0-3) Neutrophils # (Auto) 23.2x10^3uL (1.8-7.7) 12.7x10^3uL (1.8-7.7) Lymphocytes # (Auto) 0.4x10^3/uL (1.0-4.8) 0.6x10^3/uL (1.0-4.8) Monocytes # (Auto) 0.4x10^3/uL (0.0-1.1) 0.8x10^3/uL (0.0-1.1) Eosinophils # (Auto) 0.0x10^3/uL (0.0-0.7) 0.0x10^3/uL (0.0-0.7) Basophils # (Auto) 0.0x10^3/uL (0.0-0.2) 0.0x10^3/uL (0.0-0.2) Segmented Neutrophils % 96% (35-66) Band Neutrophils % 1% (0-9) Lymphocytes % 2% (24-48) Monocytes % 1% (0-10) Platelet Estimate Increased (ADEQUATE) Erythrocyte Sedimentation Rate 30 (0-25) Sodium Level 138mmol/L (136-145) 141mmol/L (136-145) Potassium Level 4.0mmol/L (3.5-5.1) 3.3mmol/L (3.5-5.1) Chloride Level 97mmol/L (98-107) 101mmol/L (98-107) Carbon Dioxide Level 34mmol/L (21-32) 36mmol/L (21-32) Anion Gap 7 (6-14) 4 (6-14) Blood Urea Nitrogen 16mg/dL (7-20) 10mg/dL (7-20) Creatinine 0.7mg/dL (0.6-1.0) 0.4mg/dL (0.6-1.0) Estimated GFR (Cockcroft-Gault) 83.0 158.3 BUN/Creatinine Ratio 23 (6-20) Glucose Level 223mg/dL (70-99) 143mg/dL (70-99) Calcium Level 8.6mg/dL (8.5-10.1) 8.1mg/dL (8.5-10.1) Total Bilirubin 0.3mg/dL (0.2-1.0) Aspartate Amino Transf (AST/SGOT) 20U/L (15-37) Alanine Aminotransferase (ALT/SGPT) 35U/L (14-59) Alkaline Phosphatase 81U/L (46-116) Total Protein 6.7g/dL (6.4-8.2) Albumin 2.8g/dL (3.4-5.0) Albumin/Globulin Ratio 0.7 (1.0-1.7) Vancomycin Level Trough 2.1mcg/mL (10.0-20.0) Vancomycin Last Dose Date [id number] Vancomycin Last Dose Time 0130 Laboratory Tests Test 06/15/16 07:20 White Blood Count 14.2x10^3/uL (4.0-11.0) Red Blood Count 3.23x10^6/uL (3.50-5.40) Hemoglobin 7.1g/dL (12.0-15.5) Hematocrit 24.2% (36.0-47.0) Mean Corpuscular Volume 75fL (79-100) Mean Corpuscular Hemoglobin 22pg (25-35) Mean Corpuscular Hemoglobin Concent 29g/dL (31-37) Red Cell Distribution Width 20.3% (11.5-14.5) Platelet Count 578x10^3/uL (140-400) Neutrophils (%) (Auto) 90% (31-73) Lymphocytes (%) (Auto) 5% (24-48) Monocytes (%) (Auto) 6% (0-9) Eosinophils (%) (Auto) 0% (0-3) Basophils (%) (Auto) 0% (0-3) Neutrophils # (Auto) 12.7x10^3uL (1.8-7.7) Lymphocytes # (Auto) 0.6x10^3/uL (1.0-4.8) Monocytes # (Auto) 0.8x10^3/uL (0.0-1.1) Eosinophils # (Auto) 0.0x10^3/uL (0.0-0.7) Basophils # (Auto) 0.0x10^3/uL (0.0-0.2) Sodium Level 141mmol/L (136-145) Potassium Level 3.3mmol/L (3.5-5.1) Chloride Level 101mmol/L (98-107) Carbon Dioxide Level 36mmol/L (21-32) Anion Gap 4 (6-14) Blood Urea Nitrogen 10mg/dL (7-20) Creatinine 0.4mg/dL (0.6-1.0) Estimated GFR (Cockcroft-Gault) 158.3 Glucose Level 143mg/dL (70-99) Calcium Level 8.1mg/dL (8.5-10.1) Microbiology 06/13/16 Blood Culture - Preliminary, Resulted NO GROWTH AFTER 1 DAY Medications Current Medications Piperacillin Sod/ Tazobactam Sod/ Sodium Chloride (Zosyn/Iv Sodium Chloride 0.9 % 100ml) 100 ml @ 200 mls/hr Q6HRS IV ; Start 06/12/16 at 00:00; Status UNV Vancomycin HCl (Vanco Per Pharmacy) 1 each PRN DAILY PRN MC SEE COMMENTS Last administered on 06/15/16 08:13; Start 06/11/16 at 23:30 Methylprednisolone Sodium Succinate (Solu-Medrol 125mg Vial) 125 mg 1X ONCE IV Last administered on 06/11/16 23:32; Start 06/11/16 at 23:30; Stop 06/11/16 at 23:31; Status DC Albuterol/ Ipratropium 3 ml 3 ml 1X ONCE NEB Last administered on 06/11/16 23 :26; Start 06/11/16 at 23:30; Stop 06/11/16 at 23:31; Status DC Piperacillin Sod/ Tazobactam Sod/ Sodium Chloride (Zosyn/Iv Sodium Chloride 0.9 % 50ml) 50 ml @ 100 mls/hr Q6HRS IV Last administered on 06/15/16 12:11; Start 06/12/16 at 00:00 Ondansetron HCl (Zofran) 4 mg PRN Q8HRS PRN IV NAUSEA/VOMITING; Start 06/12/16 at 00:30; Stop 06/13/16 at 00:29; Status DC Acetaminophen (Tylenol) 650 mg PRN Q4HRS PRN PO FEVER; Start 06/12/16 at 00:30 ; Stop 06/13/16 at 00:29; Status DC Albuterol/ Ipratropium (Duoneb) 3 ml RTQID NEB Last administered on 06/12/16 08:22; Start 06/12/16 at 08:00; Stop 06/12/16 at 10:09; Status DC Methylprednisolone Sodium Succinate 40 mg 40 mg Q12HR IV Last administered on 09:26; Start 06/12/16 at 09:00 Vancomycin HCl 1 gm/Sodium Chloride 250 ml @ 250 mls/hr ONCE ONCE IV Last administered on 06/12/16 01:22; Start 06/12/16 at 01:30; Stop 06/12/16 at 02:29 ; Status DC Vancomycin HCl/ Sodium Chloride (Iv Sodium Chloride 0.9% 100ml) 100 ml @ 100 mls/hr Q24H IV Last administered on 06/13/16 01:15; Start 06/13/16 at 01:30; Stop 06/14/16 at 01:46; Status DC Vancomycin HCl 1 each 1X ONCE MC Last administered on 06/14/16 01:00; Start 06/14/16 at 01:00; Stop 06/14/16 at 01:01; Status DC Albuterol Sulfate (Ventolin Neb Soln) 2.5 mg PRN QID PRN NEB WHEEZING; Start at 10:00 Aspirin (Ecotrin) 81 mg DAILY PO Last administered on 06/14/16 09:12; Start at 12:00; Stop 06/15/16 at 06:31; Status DC Ferrous Sulfate (Feosol) 325 mg DAILY PO Last administered on 06/15/16 09:26; Start 06/12/16 at 12:00 Acetaminophen/ Hydrocodone Bitart (Lortab 7.5/325) 1 tab QID PO ; Start at 13:00; Stop 06/12/16 at 13:00; Status DC Budesonide (Pulmicort) 0.5 mg RTBID NEB Last administered on 06/15/16 07:46; Start 06/12/16 at 11:00 Albuterol/ Ipratropium (Duoneb) 3 ml RTQID NEB Last administered on 06/15/16 11:59; Start 06/12/16 at 12:00 Potassium Chloride (Klor-Con) 40 meq 1X ONCE PO Last administered on 10:31; Start 06/12/16 at 11:00; Stop 06/12/16 at 11:01; Status DC Acetaminophen/ Hydrocodone Bitart (Lortab 7.5/325) 1 tab PRN Q6HRS PRN PO MODERATE PAIN Last administered on 06/14/16 20:52; Start 06/12/16 at 10:30 Furosemide (Lasix) 40 mg 1X ONCE IVP Last administered on 06/13/16 14:18; Start 06/13/16 at 13:45; Stop 06/13/16 at 13:46; Status DC Lorazepam 0.5 mg 0.5 mg 1X ONCE PO Last administered on 06/14/16 00:59; Start 06/14/16 at 01:00; Stop 06/14/16 at 01:01; Status DC Vancomycin HCl/ Sodium Chloride (Iv Sodium Chloride 0.9% 250ml) 250 ml @ 167 mls/hr Q24H IV Last administered on 06/14/16 02:05; Start 06/14/16 at 02:00; Stop 06/14/16 at 08:38; Status DC Vancomycin HCl 1 each 1 each 1X ONCE MC ; Start 06/16/16 at 01:30; Stop at 01:31; Status Cancel Vancomycin HCl/ Sodium Chloride (Iv Sodium Chloride 0.9% 250ml) 250 ml @ 250 mls/hr Q12H IV Last administered on 06/15/16 09:28; Start 06/14/16 at 21:00 Vancomycin HCl 1 each 1X ONCE MC ; Start 06/16/16 at 08:30; Stop 06/16/16 at 08 :31 Promethazine HCl/ Codeine 5 ml 5 ml PRN Q6HRS PRN PO COUGH Last administered on 06/15/16 12:11; Start 06/14/16 at 10:45 Sodium Chloride (Iv Sodium Chloride 0.9% 1000ml Bag) 1,000 ml @ 75 mls/hr [id number] IV Last administered on 06/14/16 10:50; Start 06/14/16 at 10:45 Lorazepam (Ativan) 0.5 mg PRN QHS PRN PO ANXIETY / AGITATION Last administered on 06/14/16 20:52; Start 06/14/16 at 20:45 Aspirin (Ecotrin) 81 mg DAILY PO Last administered on 06/15/16 09:26; Start at 06:31 Active Scripts Active Doxycycline Monohydrate 100 Mg Capsule 1 Cap PO BID Prednisone 50 Mg Tablet 50 Mg PO DAILY Prednisone 20 Mg Tablet 40 Mg PO DAILY Reported Albuterol Sulfate Neb Soln (Albuterol Sulfate) 2.5 Mg/3 Ml Vial.neb 2.5 Mg NEB [employer] Donte [employer] Seniors (Multivitamin W/Iron, Minerals) 1 Each Tablet 1 Each PO Ventolin Hfa Inhaler (Albuterol Sulfate) 18 Gm Hfa.aer.ad 2 Puff INH Q4HRS Iron (Ferrous Sulfate) 325 Mg Tablet 325 Mg PO Aspirin Ec (Aspirin) 81 Mg Tablet.dr 81 Mg PO Hydrocodone-Apap 7.5-325 (Hydrocodone Bit/Acetaminophen) 1 Each Tablet 1 Each PO Calcium 600 + Vit D 200 Tablet (Calcium Carbonate/Vitamin D3) 1 Each Tablet 1 Each PO Symbicort 160-4.5 Mcg Inhaler (Budesonide/Formoterol Fumarate) 10.2 Gm Hfa.aer.ad 10.2 Gm IH Spiriva (Tiotropium [place]) 18 Mcg Cap.w.dev 18 Mcg IH Vitals/I & O Vital Sign - Last 24 Hours 06/14/16 06/14/16 06/14/16 06/14/16 14:33 15:00 15:57 19:00 Temp 97.7 98.0 97.7 98.0 Pulse 115 120 Resp 24 26 B/P 150/69 129/65 Pulse Ox 95 98 95 O2 Delivery Nasal Cannula Nasal Cannula Nasal Cannula Nasal Cannula O2 Flow Rate 3.0 3.0 3.0 06/14/16 06/14/16 06/14/16 06/14/16 19:57 19:58 20:00 20:52 Pulse Ox 98 98 98 O2 Delivery Nasal Cannula Nasal Cannula Nasal Cannula Nasal Cannula O2 Flow Rate 3.0 3.0 3.0 3.0 06/14/16 06/14/16 06/15/16 06/15/16 21:52 23:00 03:00 07:30 Temp 98.2 97.8 97.4 98.2 97.8 97.4 Pulse 100 97 98 Resp 24 18 16 B/P 165/61 145/61 151/66 Pulse Ox 98 95 96 95 O2 Delivery Nasal Cannula Nasal Cannula Nasal Cannula Nasal Cannula O2 Flow Rate 3.0 3.0 3.0 4.0 06/15/16 06/15/16 06/15/16 06/15/16 07:48 08:00 11:02 12:00 Temp 98.0 98.0 Pulse 108 Resp 20 B/P 164/84 Pulse Ox 98 93 98 O2 Delivery Nasal Cannula Nasal Cannula Nasal Cannula Nasal Cannula O2 Flow Rate 3.0 4.0 4.0 3.0 Intake and Output 06/14/16 06/14/16 06/15/16 15:00 23:00 07:00 Intake Total 480 ml 600 ml 50 ml Output Total 510 ml 950 ml Balance -30 ml 600 ml -900 ml Nutrition Consultation Dietary Evaluation: Recommendations by RD: Increase Calorie Intake, Protein supplementation Comments: boost plus tid Expected Outcomes/Goals: to meet > 75% est nutr needs Malnutrition Findings: Muscle Mass (Severe): Severe Depletion Body Fat Depletion (Non Severe: Mod to Severe Reduced Grain Loader Strength: N/A Weight Status: Underweight Fluid Accumulation (N/A): N/A LATHA ANDREWS MD Jun 15, 2016 13:23
[2016-06-15 15:22] VITALS: BP 148/49
--- NOTE | 2016-06-15 16:40 | PDOC2 ---
PALLIATIVE CARE Palliative Care Note Palliative Care Consult requested by Dr. Salomon to address goals of care. Diagnosis; End Stage COPD; Respiratory Failure; Fibrosis; anemia; HCAP-- antibiotics. Patient lives with daughter, 6 year old grandson and 16 year old grandson/ Patient has 2 other daughter with minimal involvement in care Patient confused at times. MS improved since admission. Spoke with daughter Jennifer. States she is DPOA. Requested copy of document. Reviewed above medical condition as well as results of Echo, imaging and labs. Patient adamant about being home. Informed of option of hospice --with visiting care providers at home and not returning to hospital. patient indicated she was interested. Discussed all options of care. Continue current aggressin care including antibiotics; vs limited care vs comfort care. Patient would qualify for Hospice. Daughter would consider this option but will speak with family. DNR/DNI confirmed with Jennifer: Outside the Hospital form to be signed by Jennifer and physician. If family's decision is hospice DME_ (patient has own hospital bed but no side rails) oxygen. BSC; w/c Will have further discussion with patient and family tomorrow about their decision. MALATHI MINER Jun 15, 2016 16:40
[2016-06-15 19:00] VITALS: BP 123/65
[2016-06-15] MEDS: LORAZEPAM 0.5 MG TABLET. PO PRN (22:17)
[2016-06-15] MEDS: HYDROCODONE/APAP 7.5/325MG TABLET. PO PRN (22:18)
[2016-06-15 23:00] VITALS: BP 134/79
[2016-06-15] MEDS ORDERED: POTASSIUM CHLORIDE 20 MEQ TABLET.ER. PO ONE (23:30)
[2016-06-15] MEDS: DILTIAZEM HCL 30 MG TABLET PO SCH (23:56)
[2016-06-16 03:00] VITALS: BP 130/58
[2016-06-16] MEDS: PIPERACILLIN/TAZOBACTAM 2.25 GM in IV NORMAL SALINE 50ML 50 ML IV SCH (06:27)
[2016-06-16] MEDS: DILTIAZEM HCL 30 MG TABLET PO SCH ×2 (06:27→14:34)
[2016-06-16] MEDS: IPRATRPIUM/ALBUTEROL 0.5/2.5MG 3 ML NEBU. NEB SCH ×3 (07:06→15:02)
[2016-06-16] MEDS: BUDESONIDE 0.5 MG/2 ML NEBU. NEB SCH (07:07)
[2016-06-16 08:00] VITALS: BP 133/64
[2016-06-16 08:42] LABS: BASO % 0 % (0-3); EOS % 0 % (0-3); HEMATOCRIT 24.9 % (36.0-47.0); HEMOGLOBIN 7.2 g/dL (12.0-15.5); LYMPH # 0.5 x10^3/uL (1.0-4.8); LYMPH % 4 % (24-48); MEAN CORPUSCULAR HEMOGLOBIN 22 pg (25-35); MEAN CORPUSCULAR HGB CONC 29 g/dL (31-37); MEAN CORPUSCULAR VOLUME 75 fL (79-100); MONO % 4 % (0-9); NEUT % 92 % (31-73); PLATELET COUNT 660 x10^3/uL (140-400); RED BLOOD COUNT 3.31 x10^6/uL (3.50-5.40); RED CELL DISTRIBUTION WIDTH 20.5 % (11.5-14.5)
[2016-06-16 09:00] LABS: CALCIUM 8.4 mg/dL (8.5-10.1); CREATININE 0.4 mg/dL (0.6-1.0); GFR 158.3; POTASSIUM 4.7 mmol/L (3.5-5.1)
--- NOTE | 2016-06-16 09:01 | PDOC ---
PULMONARY PROGRESS NOTES Subjective pt not more soa Vitals Vital Signs Date Time Temp Pulse Resp B/P Pulse Ox O2 Delivery O2 Flow Rate FiO2 06/16/16 08:00 98.5 85 25 133/64 94 Nasal Cannula 3.0 98.5 ROS: No Nausea, No Chest Pain, No Abdominal Pain, No Increase Cough General: Alert Lungs: Crackles Cardiovascular: S1, S2 Abdomen: Soft Neuro Exam: Alert Extremities: No Edema Skin: Warm Labs Laboratory Tests Test 06/15/16 07:20 06/16/16 08:25 White Blood Count 14.2x10^3/uL (4.0-11.0) 14.0x10^3/uL (4.0-11.0) Red Blood Count 3.23x10^6/uL (3.50-5.40) 3.31x10^6/uL (3.50-5.40) Hemoglobin 7.1g/dL (12.0-15.5) 7.2g/dL (12.0-15.5) Hematocrit 24.2% (36.0-47.0) 24.9% (36.0-47.0) Mean Corpuscular Volume 75fL (79-100) 75fL (79-100) Mean Corpuscular Hemoglobin 22pg (25-35) 22pg (25-35) Mean Corpuscular Hemoglobin Concent 29g/dL (31-37) 29g/dL (31-37) Red Cell Distribution Width 20.3% (11.5-14.5) 20.5% (11.5-14.5) Platelet Count 578x10^3/uL (140-400) 660x10^3/uL (140-400) Neutrophils (%) (Auto) 90% (31-73) 92% (31-73) Lymphocytes (%) (Auto) 5% (24-48) 4% (24-48) Monocytes (%) (Auto) 6% (0-9) 4% (0-9) Eosinophils (%) (Auto) 0% (0-3) 0% (0-3) Basophils (%) (Auto) 0% (0-3) 0% (0-3) Neutrophils # (Auto) 12.7x10^3uL (1.8-7.7) 12.9x10^3uL (1.8-7.7) Lymphocytes # (Auto) 0.6x10^3/uL (1.0-4.8) 0.5x10^3/uL (1.0-4.8) Monocytes # (Auto) 0.8x10^3/uL (0.0-1.1) 0.6x10^3/uL (0.0-1.1) Eosinophils # (Auto) 0.0x10^3/uL (0.0-0.7) 0.0x10^3/uL (0.0-0.7) Basophils # (Auto) 0.0x10^3/uL (0.0-0.2) 0.0x10^3/uL (0.0-0.2) Sodium Level 141mmol/L (136-145) Potassium Level 3.3mmol/L (3.5-5.1) Chloride Level 101mmol/L (98-107) Carbon Dioxide Level 36mmol/L (21-32) Anion Gap 4 (6-14) Blood Urea Nitrogen 10mg/dL (7-20) Creatinine 0.4mg/dL (0.6-1.0) Estimated GFR (Cockcroft-Gault) 158.3 Glucose Level 143mg/dL (70-99) Calcium Level 8.1mg/dL (8.5-10.1) Laboratory Tests Test 06/16/16 08:25 White Blood Count 14.0x10^3/uL (4.0-11.0) Red Blood Count 3.31x10^6/uL (3.50-5.40) Hemoglobin 7.2g/dL (12.0-15.5) Hematocrit 24.9% (36.0-47.0) Mean Corpuscular Volume 75fL (79-100) Mean Corpuscular Hemoglobin 22pg (25-35) Mean Corpuscular Hemoglobin Concent 29g/dL (31-37) Red Cell Distribution Width 20.5% (11.5-14.5) Platelet Count 660x10^3/uL (140-400) Neutrophils (%) (Auto) 92% (31-73) Lymphocytes (%) (Auto) 4% (24-48) Monocytes (%) (Auto) 4% (0-9) Eosinophils (%) (Auto) 0% (0-3) Basophils (%) (Auto) 0% (0-3) Neutrophils # (Auto) 12.9x10^3uL (1.8-7.7) Lymphocytes # (Auto) 0.5x10^3/uL (1.0-4.8) Monocytes # (Auto) 0.6x10^3/uL (0.0-1.1) Eosinophils # (Auto) 0.0x10^3/uL (0.0-0.7) Basophils # (Auto) 0.0x10^3/uL (0.0-0.2) Medications Active Scripts Medications Dose Route/Sig Days Date Category Doxycycline Monohydrate 100 Mg Capsule 1 Cap PO BID 05/19/16 Rx Prednisone 50 Mg Tablet 50 Mg PO DAILY 05/19/16 Rx Prednisone 20 Mg Tablet 40 Mg PO DAILY 05/11/14 Rx Albuterol Sulfate Neb Soln (Albuterol Sulfate) 2.5 Mg/3 Ml Vial.neb 2.5 Mg NEB 09/30/13 Reported [employer] Donte For Seniors (Multivitamin W/Iron, Minerals) 1 Each Tablet 1 Each PO 09/30/13 Reported Ventolin Hfa Inhaler (Albuterol Sulfate) 18 Gm Hfa.aer.ad 2 Puff INH Q4HRS 09/30/13 Reported Iron (Ferrous Sulfate) 325 Mg Tablet 325 Mg PO 09/30/13 Reported Aspirin Ec (Aspirin) 81 Mg Tablet.dr 81 Mg PO 09/30/13 Reported Hydrocodone-Apap 7.5-325 (Hydrocodone Bit/Acetaminophen) 1 Each Tablet 1 Each PO 05/24/13 Reported Calcium 600 + Vit D 200 Tablet (Calcium Carbonate/Vitamin D3) 1 Each Tablet 1 Each PO 05/24/13 Reported Symbicort 160-4.5 Mcg Inhaler (Budesonide/Formoterol Fumarate) 10.2 Gm Hfa.aer.ad 10.2 Gm IH 05/24/13 Reported Spiriva (Tiotropium D Lo) 18 Mcg Cap.w.dev 18 Mcg IH 05/24/13 Reported Impression . IMPRESSION: 1. Acute on chronic hypoxic respiratory failure secondary to underlying chronic obstructive pulmonary disease, mild bronchiectasis in the right upper lobe and also in new left upper lobe pneumonia. 2. Abnormal CT chest with severe emphysematous changes along with bronchiectasis in the right upper lobe and a new left upper lobe consolidation. 3. Leukocytosis secondary to pneumonia. 4. Worsening L2 compression fracture with chronic back pain. 5. Possible blood transfusion reaction Plan . home in am per Dr Salomon cxr reviewed no new infiltrates no sign of pulmonary edema 1. Continue with present broad spectrum antibiotics to cover for gram-negative and gram-positive organisms. 2. Continue DuoNeb. 3. Continue IV Solu-Medrol with gradual taper. 4. Repeat chest x-ray in few days. 5. hold further transfusion KENYON BARRON MD Jun 16, 2016 09:01
--- NOTE | 2016-06-16 09:23 | RAD ---
Portable chest, 06/16/2016: History: Follow-up pneumonia Comparison is made to a study from 06/13/2016. The patient is rotated to the right. The heart is within normal limits in size. There is a large hiatal hernia. There is calcific plaquing of the aorta. Previous studies have demonstrated mild left upper lobe infiltrate superimposed upon chronic pleural/parenchymal scarring. These findings appear to be unchanged. No new pulmonary abnormality is seen. There is no evidence of pleural fluid or pneumothorax. IMPRESSION: 1. Mild unchanged patchy left upper lobe infiltrate superimposed upon fibrosis. 2. Chronic bronchiectasis and scarring in the right upper lobe. 3. Large hiatal hernia.
[2016-06-16] MEDS: VANCOMYCIN PER PHARMACY MC PRN (09:27)
[2016-06-16] MEDS ORDERED: FERROUS SULFATE 325 MG TABLET. PO ONE (09:58)
[2016-06-16] MEDS ORDERED: VANCOMYCIN 750 MG in IV NORMAL SALINE 250ML 250 ML IV SCH (10:00)
[2016-06-16] MEDS: HYDROCODONE/APAP 7.5/325MG TABLET. PO PRN (10:04)
[2016-06-16] MEDS: methylPREDNISolone SOD SUCC PF 40 MG/ML VIAL. IV SCH (10:04)
[2016-06-16] MEDS: FERROUS SULFATE 325 MG TABLET PO SCH (10:05)
[2016-06-16] MEDS: ASPIRIN ENTERIC COATED 81 MG TABLET.DR. PO SCH (10:05)
--- NOTE | 2016-06-16 10:17 | PDOC ---
PROGRESS NOTES Subjective Subjective Patient seen & examined while seated in bedside chair this morning drinking nutritional supplement. She states she would like to keep plan of going home today. Discussed results of visit with Mary Shelley. No cardiac complaints. Objective Objective Vital Signs Date Time Temp Pulse Resp B/P Pulse Ox O2 Delivery O2 Flow Rate FiO2 06/16/16 10:04 24 94 Nasal Cannula 2.0 06/16/16 08:00 98.5 85 133/64 98.5 Intake and Output 06/16/16 07:00 Intake Total 1970 ml Output Total 750 ml Balance 1220 ml Intake Oral 720 ml IV Total 1250 ml Output Urine Total 750 ml # Voids 2 # Bowel Movements 2 Physical Exam Heart: Other (Unchanged since previous cardiac exam) Extremities: No edema General: Alert, Cooperative, No acute distress Lungs: Other (Crackles improving) Assessment Assessment Problems Medical Problems: (1) Altered mental status Status: Acute (2) COPD exacerbation Status: Acute (3) HCAP (healthcare-associated pneumonia) Status: Acute Plan Plan of Care Agree with present plan. Case discussed with Dr Salomon. Comment Review of Relevant I have reviewed the following items jeff (where applicable) has been applied. Labs Laboratory Tests Test 06/15/16 07:20 06/16/16 08:25 White Blood Count 14.2x10^3/uL (4.0-11.0) 14.0x10^3/uL (4.0-11.0) Red Blood Count 3.23x10^6/uL (3.50-5.40) 3.31x10^6/uL (3.50-5.40) Hemoglobin 7.1g/dL (12.0-15.5) 7.2g/dL (12.0-15.5) Hematocrit 24.2% (36.0-47.0) 24.9% (36.0-47.0) Mean Corpuscular Volume 75fL (79-100) 75fL (79-100) Mean Corpuscular Hemoglobin 22pg (25-35) 22pg (25-35) Mean Corpuscular Hemoglobin Concent 29g/dL (31-37) 29g/dL (31-37) Red Cell Distribution Width 20.3% (11.5-14.5) 20.5% (11.5-14.5) Platelet Count 578x10^3/uL (140-400) 660x10^3/uL (140-400) Neutrophils (%) (Auto) 90% (31-73) 92% (31-73) Lymphocytes (%) (Auto) 5% (24-48) 4% (24-48) Monocytes (%) (Auto) 6% (0-9) 4% (0-9) Eosinophils (%) (Auto) 0% (0-3) 0% (0-3) Basophils (%) (Auto) 0% (0-3) 0% (0-3) Neutrophils # (Auto) 12.7x10^3uL (1.8-7.7) 12.9x10^3uL (1.8-7.7) Lymphocytes # (Auto) 0.6x10^3/uL (1.0-4.8) 0.5x10^3/uL (1.0-4.8) Monocytes # (Auto) 0.8x10^3/uL (0.0-1.1) 0.6x10^3/uL (0.0-1.1) Eosinophils # (Auto) 0.0x10^3/uL (0.0-0.7) 0.0x10^3/uL (0.0-0.7) Basophils # (Auto) 0.0x10^3/uL (0.0-0.2) 0.0x10^3/uL (0.0-0.2) Sodium Level 141mmol/L (136-145) 142mmol/L (136-145) Potassium Level 3.3mmol/L (3.5-5.1) 4.7mmol/L (3.5-5.1) Chloride Level 101mmol/L (98-107) 103mmol/L (98-107) Carbon Dioxide Level 36mmol/L (21-32) 36mmol/L (21-32) Anion Gap 4 (6-14) 3 (6-14) Blood Urea Nitrogen 10mg/dL (7-20) 16mg/dL (7-20) Creatinine 0.4mg/dL (0.6-1.0) 0.4mg/dL (0.6-1.0) Estimated GFR (Cockcroft-Gault) 158.3 158.3 Glucose Level 143mg/dL (70-99) 107mg/dL (70-99) Calcium Level 8.1mg/dL (8.5-10.1) 8.4mg/dL (8.5-10.1) Vancomycin Level Trough 8.1mcg/mL (10.0-20.0) Vancomycin Last Dose Date 06/15/16 Vancomycin Last Dose Time 2100 Laboratory Tests Test 06/16/16 08:25 White Blood Count 14.0x10^3/uL (4.0-11.0) Red Blood Count 3.31x10^6/uL (3.50-5.40) Hemoglobin 7.2g/dL (12.0-15.5) Hematocrit 24.9% (36.0-47.0) Mean Corpuscular Volume 75fL (79-100) Mean Corpuscular Hemoglobin 22pg (25-35) Mean Corpuscular Hemoglobin Concent 29g/dL (31-37) Red Cell Distribution Width 20.5% (11.5-14.5) Platelet Count 660x10^3/uL (140-400) Neutrophils (%) (Auto) 92% (31-73) Lymphocytes (%) (Auto) 4% (24-48) Monocytes (%) (Auto) 4% (0-9) Eosinophils (%) (Auto) 0% (0-3) Basophils (%) (Auto) 0% (0-3) Neutrophils # (Auto) 12.9x10^3uL (1.8-7.7) Lymphocytes # (Auto) 0.5x10^3/uL (1.0-4.8) Monocytes # (Auto) 0.6x10^3/uL (0.0-1.1) Eosinophils # (Auto) 0.0x10^3/uL (0.0-0.7) Basophils # (Auto) 0.0x10^3/uL (0.0-0.2) Sodium Level 142mmol/L (136-145) Potassium Level 4.7mmol/L (3.5-5.1) Chloride Level 103mmol/L (98-107) Carbon Dioxide Level 36mmol/L (21-32) Anion Gap 3 (6-14) Blood Urea Nitrogen 16mg/dL (7-20) Creatinine 0.4mg/dL (0.6-1.0) Estimated GFR (Cockcroft-Gault) 158.3 Glucose Level 107mg/dL (70-99) Calcium Level 8.4mg/dL (8.5-10.1) Vancomycin Level Trough 8.1mcg/mL (10.0-20.0) Vancomycin Last Dose Date 06/15/16 Vancomycin Last Dose Time 2100 Microbiology 06/13/16 Blood Culture - Preliminary, Resulted NO GROWTH AFTER 2 DAYS Medications Current Medications Piperacillin Sod/ Tazobactam Sod/ Sodium Chloride (Zosyn/Iv Sodium Chloride 0.9 % 100ml) 100 ml @ 200 mls/hr Q6HRS IV ; Start 06/12/16 at 00:00; Status UNV Vancomycin HCl (Vanco Per Pharmacy) 1 each PRN DAILY PRN MC SEE COMMENTS Last administered on 06/16/16 09:27; Start 06/11/16 at 23:30 Methylprednisolone Sodium Succinate (Solu-Medrol 125mg Vial) 125 mg 1X ONCE IV Last administered on 06/11/16 23:32; Start 06/11/16 at 23:30; Stop 06/11/16 at 23:31; Status DC Albuterol/ Ipratropium 3 ml 3 ml 1X ONCE NEB Last administered on 06/11/16 23 :26; Start 06/11/16 at 23:30; Stop 06/11/16 at 23:31; Status DC Piperacillin Sod/ Tazobactam Sod/ Sodium Chloride (Zosyn/Iv Sodium Chloride 0.9 % 50ml) 50 ml @ 100 mls/hr Q6HRS IV Last administered on 06/16/16 06:27; Start 06/12/16 at 00:00 Ondansetron HCl (Zofran) 4 mg PRN Q8HRS PRN IV NAUSEA/VOMITING; Start 06/12/16 at 00:30; Stop 06/13/16 at 00:29; Status DC Acetaminophen (Tylenol) 650 mg PRN Q4HRS PRN PO FEVER; Start 06/12/16 at 00:30 ; Stop 06/13/16 at 00:29; Status DC Albuterol/ Ipratropium (Duoneb) 3 ml RTQID NEB Last administered on 06/12/16 08:22; Start 06/12/16 at 08:00; Stop 06/12/16 at 10:09; Status DC Methylprednisolone Sodium Succinate 40 mg 40 mg Q12HR IV Last administered on 10:04; Start 06/12/16 at 09:00 Vancomycin HCl 1 gm/Sodium Chloride 250 ml @ 250 mls/hr ONCE ONCE IV Last administered on 06/12/16 01:22; Start 06/12/16 at 01:30; Stop 06/12/16 at 02:29 ; Status DC Vancomycin HCl/ Sodium Chloride (Iv Sodium Chloride 0.9% 100ml) 100 ml @ 100 mls/hr Q24H IV Last administered on 06/13/16 01:15; Start 06/13/16 at 01:30; Stop 06/14/16 at 01:46; Status DC Vancomycin HCl 1 each 1X ONCE MC Last administered on 06/14/16 01:00; Start 06/14/16 at 01:00; Stop 06/14/16 at 01:01; Status DC Albuterol Sulfate (Ventolin Neb Soln) 2.5 mg PRN QID PRN NEB WHEEZING; Start at 10:00 Aspirin (Ecotrin) 81 mg DAILY PO Last administered on 06/14/16 09:12; Start at 12:00; Stop 06/15/16 at 06:31; Status DC Ferrous Sulfate (Feosol) 325 mg DAILY PO Last administered on 06/16/16 10:05; Start 06/12/16 at 12:00 Acetaminophen/ Hydrocodone Bitart (Lortab 7.5/325) 1 tab QID PO ; Start at 13:00; Stop 06/12/16 at 13:00; Status DC Budesonide (Pulmicort) 0.5 mg RTBID NEB Last administered on 06/16/16 07:07; Start 06/12/16 at 11:00 Albuterol/ Ipratropium (Duoneb) 3 ml RTQID NEB Last administered on 06/16/16 07:06; Start 06/12/16 at 12:00 Potassium Chloride (Klor-Con) 40 meq 1X ONCE PO Last administered on 10:31; Start 06/12/16 at 11:00; Stop 06/12/16 at 11:01; Status DC Acetaminophen/ Hydrocodone Bitart (Lortab 7.5/325) 1 tab PRN Q6HRS PRN PO MODERATE PAIN Last administered on 06/16/16 10:04; Start 06/12/16 at 10:30 Furosemide (Lasix) 40 mg 1X ONCE IVP Last administered on 06/13/16 14:18; Start 06/13/16 at 13:45; Stop 06/13/16 at 13:46; Status DC Lorazepam 0.5 mg 0.5 mg 1X ONCE PO Last administered on 06/14/16 00:59; Start 06/14/16 at 01:00; Stop 06/14/16 at 01:01; Status DC Vancomycin HCl/ Sodium Chloride (Iv Sodium Chloride 0.9% 250ml) 250 ml @ 167 mls/hr Q24H IV Last administered on 06/14/16 02:05; Start 06/14/16 at 02:00; Stop 06/14/16 at 08:38; Status DC Vancomycin HCl 1 each 1 each 1X ONCE MC ; Start 06/16/16 at 01:30; Stop at 01:31; Status Cancel Vancomycin HCl/ Sodium Chloride (Iv Sodium Chloride 0.9% 250ml) 250 ml @ 250 mls/hr Q12H IV Last administered on 06/15/16 22:16; Start 06/14/16 at 21:00; Stop 06/16/16 at 09:16; Status DC Vancomycin HCl 1 each 1X ONCE MC Last administered on 06/16/16 08:30; Start 06/16/16 at 08:30; Stop 06/16/16 at 08:43; Status DC Promethazine HCl/ Codeine 5 ml 5 ml PRN Q6HRS PRN PO COUGH Last administered on 06/15/16 20:34; Start 06/14/16 at 10:45 Sodium Chloride (Iv Sodium Chloride 0.9% 1000ml Bag) 1,000 ml @ 75 mls/hr [id number] IV Last administered on 06/15/16 18:22; Start 06/14/16 at 10:45 Lorazepam (Ativan) 0.5 mg PRN QHS PRN PO ANXIETY / AGITATION Last administered on 06/15/16 22:17; Start 06/14/16 at 20:45 Aspirin (Ecotrin) 81 mg DAILY PO Last administered on 06/16/16 10:05; Start at 06:31 Diltiazem HCl (Cardizem) 60 mg Q8HRS PO Last administered on 06/16/16 06:27; Start 06/15/16 at 23:30 Potassium Chloride 40 meq 40 meq 1X ONCE PO Last administered on 06/15/16 23: 56; Start 06/15/16 at 23:30; Stop 06/15/16 at 23:31; Status DC Vancomycin HCl/ Sodium Chloride (Iv Sodium Chloride 0.9% 250ml) 250 ml @ 250 mls/hr Q8H IV Last administered on 06/16/16 10:05; Start 06/16/16 at 10:00 Vancomycin HCl 1 each 1X ONCE MC ; Start 06/17/16 at 09:30; Stop 06/17/16 at 09: 31 Ferrous Sulfate (Feosol) 325 mg STK-MED ONCE PO ; Start 06/16/16 at 09:58; Stop 06/16/16 at 09:59; Status DC Active Scripts Active Doxycycline Monohydrate 100 Mg Capsule 1 Cap PO BID Prednisone 50 Mg Tablet 50 Mg PO DAILY Prednisone 20 Mg Tablet 40 Mg PO DAILY Reported Albuterol Sulfate Neb Soln (Albuterol Sulfate) 2.5 Mg/3 Ml Vial.neb 2.5 Mg NEB [employer]te [employer] Seniors (Multivitamin W/Iron, Minerals) 1 Each Tablet 1 Each PO Ventolin Hfa Inhaler (Albuterol Sulfate) 18 Gm Hfa.aer.ad 2 Puff INH Q4HRS Iron (Ferrous Sulfate) 325 Mg Tablet 325 Mg PO Aspirin Ec (Aspirin) 81 Mg Tablet.dr 81 Mg PO Hydrocodone-Apap 7.5-325 (Hydrocodone Bit/Acetaminophen) 1 Each Tablet 1 Each PO Calcium 600 + Vit D 200 Tablet (Calcium Carbonate/Vitamin D3) 1 Each Tablet 1 Each PO Symbicort 160-4.5 Mcg Inhaler (Budesonide/Formoterol Fumarate) 10.2 Gm Hfa.aer.ad 10.2 Gm IH Spiriva (Tiotropium [place]) 18 Mcg Cap.w.dev 18 Mcg IH Vitals/I & O Vital Sign - Last 24 Hours 3/30/17 3/30/17 3/30/17 3/30/17 11:02 12:00 15:22 15:53 Temp 98.0 97.8 98.0 97.8 Pulse 108 117 Resp 20 23 B/P 164/84 148/49 Pulse Ox 93 98 99 97 O2 Delivery Nasal Cannula Nasal Cannula Nasal Cannula Nasal Cannula O2 Flow Rate 4.0 3.0 3.0 06/15/16 06/15/16 06/15/16 06/15/16 19:00 20:00 20:11 22:18 Temp 98.5 98.5 Pulse 109 Resp 22 18 B/P 123/65 Pulse Ox 95 96 98 O2 Delivery Nasal Cannula Nasal Cannula Nasal Cannula O2 Flow Rate 3.0 3.0 3.0 06/15/16 06/15/16 06/15/16 06/16/16 23:00 23:18 23:56 03:00 Temp 98.3 97.7 98.3 97.7 Pulse 105 97 79 Resp 20 14 20 B/P 134/79 134/79 130/58 Pulse Ox 100 100 93 O2 Delivery Nasal Cannula Nasal Cannula O2 Flow Rate 3.0 3.0 06/16/16 06/16/16 06/16/16 06/16/16 06:27 07:07 08:00 08:00 Temp 98.5 98.5 Pulse 81 85 Resp 25 B/P 133/64 Pulse Ox 98 94 O2 Delivery Nasal Cannula Nasal Cannula Nasal Cannula O2 Flow Rate 3.0 3.0 3.0 06/16/16 10:04 Resp 24 Pulse Ox 94 O2 Delivery Nasal Cannula O2 Flow Rate 2.0 Intake and Output 06/15/16 06/15/16 06/16/16 15:00 23:00 07:00 Intake Total 120 ml 1850 ml Output Total 750 ml Balance 120 ml 1100 ml Nutrition Consultation Dietary Evaluation: Recommendations by RD: Increase Calorie Intake, Protein supplementation Comments: boost plus tid Expected Outcomes/Goals: to meet > 75% est nutr needs Malnutrition Findings: Muscle Mass (Severe): Severe Depletion Body Fat Depletion (Non Severe: Mod to Severe Reduced [employer] Strength: N/A Weight Status: Underweight Fluid Accumulation (N/A): N/A LATHA ANDREWS MD Jun 16, 2016 10:17
--- NOTE | 2016-06-16 10:44 | PDOC2 ---
PALLIATIVE CARE Palliative Care Note Palliative Care Patient sitting up in chair. Lethargic but awakens easily and oriented. Adamant about going home today. Jennifer at work and will discuss decisions about support needed when discharged. Continue on IV Solu-Medrol. MALATHI MINER Jun 16, 2016 10:44
[2016-06-16] MEDS ORDERED: LEVOFLOXACIN 500 MG TABLET PO ONE (10:45)
[2016-06-16] MEDS ORDERED: PREDNISONE 10 MG TABLET PO ONE (10:45)
[2016-06-16 11:00] VITALS: BP 127/67
[2016-06-16] MEDS ORDERED: LEVO500T38 PO (13:49)
[2016-06-16] MEDS ORDERED: DILT30TA26 PO (13:51)
[2016-06-16 15:04] VITALS: BP 129/71
--- NOTE | 2016-06-16 15:37 | PDOC2 ---
PALLIATIVE CARE Palliative Care Note Palliative Care Patient sitting up in chair. Seen at 1230. Anxious to go home. Spoke with Daughter Jennifer. She has spoke with Dr. Salomon this am. Plan home with Hospice today. DME; Bed rales for patient's hospital bed at home. oxygen, [facility] Jennifer will transport patient home 1800.. Will bring oxygen from home Will need signature from daughter on outside the hospital DNR form Jennifer will discuss with hospice about her concerns of patient dying at home. Freda GRIMM will assist with discharge plans, faxing information to Hospice. MALATHI MINER Jun 16, 2016 15:37
--- NOTE | 2016-06-16 16:32 | PDOC ---
PROGRESS NOTES Subjective Subjective feels better ,anxious to go home Objective Objective Vital Signs Date Time Temp Pulse Resp B/P Pulse Ox O2 Delivery O2 Flow Rate FiO2 06/16/16 15:04 98.3 22 129/71 95 Nasal Cannula 2.0 98.3 06/16/16 14:34 81 Intake and Output 06/16/16 07:00 Intake Total 1970 ml Output Total 750 ml Balance 1220 ml Intake Oral 720 ml IV Total 1250 ml Output Urine Total 750 ml # Voids 2 # Bowel Movements 2 Physical Exam Abdomen: Normal bowel sounds, Soft Heart: Other (Unchanged since previous cardiac exam) Extremities: No edema General: Alert, Cooperative, No acute distress HEENT: EOMI Lungs: Other (Crackles improving) MUSCULOSKELETAL: Osteoarthritic changes both hands, Other Neck: Supple Neuro: Normal speech Psych/Mental Status: Mood NL Diagnosis Problem List Problems Medical Problems: (1) Altered mental status Status: Acute (2) COPD exacerbation Status: Acute (3) HCAP (healthcare-associated pneumonia) Status: Acute Assessment Assessment Problems Medical Problems: (1) Altered mental status Status: Acute (2) COPD exacerbation Status: Acute (3) HCAP (healthcare-associated pneumonia) Status: Acute FINAL IMPRESSION: tachycardia yesterday during blood infusion Anemia Hb 7.0 1. Acute chronic obstructive pulmonary disease with exacerbation. 2. Acute bronchitis. 3. Chronic recurrent sinusitis. 4. Chronic obstructive pulmonary disease with hypoxia. 5. Chronic anemia secondary to iron deficiency. 6. Hypokalemia. 7. History of brain aneurysm, recording done. 8. Smoking addiction. 9. Osteoporosis with compression fracture of the spine. 10. General debility and decline and protein-calorie malnutrition, moderate. PLAN: d/c iv antibiotics .changed to PO meds spoke with family ,palliative team consult, poor prognosis, home with hospice. transfused 1u prbc. yesterday,had reaction, tachycardiac transferred to icu CT chest + Pneumonia. scarring in Lungs ,no lung mass. labs reviewed wbc elevated due to steroids and transfusion. echogood lvf cardiology consult spoke with cardiology today. echo good LVF. cardizam for tachycardia Problems: Plan Plan of Care Problems Medical Problems: (1) Altered mental status Status: Acute (2) COPD exacerbation Status: Acute (3) HCAP (healthcare-associated pneumonia) Status: Acute Comment Review of Relevant I have reviewed the following items jeff (where applicable) has been applied. Labs Laboratory Tests Test 06/16/16 08:25 White Blood Count 14.0x10^3/uL (4.0-11.0) Red Blood Count 3.31x10^6/uL (3.50-5.40) Hemoglobin 7.2g/dL (12.0-15.5) Hematocrit 24.9% (36.0-47.0) Mean Corpuscular Volume 75fL (79-100) Mean Corpuscular Hemoglobin 22pg (25-35) Mean Corpuscular Hemoglobin Concent 29g/dL (31-37) Red Cell Distribution Width 20.5% (11.5-14.5) Platelet Count 660x10^3/uL (140-400) Neutrophils (%) (Auto) 92% (31-73) Lymphocytes (%) (Auto) 4% (24-48) Monocytes (%) (Auto) 4% (0-9) Eosinophils (%) (Auto) 0% (0-3) Basophils (%) (Auto) 0% (0-3) Neutrophils # (Auto) 12.9x10^3uL (1.8-7.7) Lymphocytes # (Auto) 0.5x10^3/uL (1.0-4.8) Monocytes # (Auto) 0.6x10^3/uL (0.0-1.1) Eosinophils # (Auto) 0.0x10^3/uL (0.0-0.7) Basophils # (Auto) 0.0x10^3/uL (0.0-0.2) Sodium Level 142mmol/L (136-145) Potassium Level 4.7mmol/L (3.5-5.1) Chloride Level 103mmol/L (98-107) Carbon Dioxide Level 36mmol/L (21-32) Anion Gap 3 (6-14) Blood Urea Nitrogen 16mg/dL (7-20) Creatinine 0.4mg/dL (0.6-1.0) Estimated GFR (Cockcroft-Gault) 158.3 Glucose Level 107mg/dL (70-99) Calcium Level 8.4mg/dL (8.5-10.1) Vancomycin Level Trough 8.1mcg/mL (10.0-20.0) Vancomycin Last Dose Date 06/15/16 Vancomycin Last Dose Time 2100 Microbiology 06/13/16 Blood Culture - Preliminary, Resulted NO GROWTH AFTER 3 DAYS Medications Current Medications Diltiazem HCl (Cardizem) 60 mg Q8HRS PO Last administered on 06/16/16 14:34; Start 06/15/16 at 23:30 Ferrous Sulfate (Feosol) 325 mg STK-MED ONCE PO ; Start 06/16/16 at 09:58; Stop 06/16/16 at 09:59; Status DC Levofloxacin (Levaquin) 500 mg 1X ONCE PO Last administered on 06/16/16 11:32 ; Start 06/16/16 at 10:45; Stop 06/16/16 at 10:46; Status DC Potassium Chloride 40 meq 40 meq 1X ONCE PO Last administered on 06/15/16 23: 56; Start 06/15/16 at 23:30; Stop 06/15/16 at 23:31; Status DC Prednisone (Prednisone) 50 mg 1X ONCE PO Last administered on 06/16/16 11:32 ; Start 06/16/16 at 10:45; Stop 06/16/16 at 10:46; Status DC Vancomycin HCl 1 each 1X ONCE MC ; Start 06/16/16 at 01:30; Stop 06/16/16 at 01 :31; Status Cancel Vancomycin HCl 1 each 1X ONCE MC Last administered on 06/16/16 08:30; Start 06/16/16 at 08:30; Stop 06/16/16 at 08:43; Status DC Vancomycin HCl 1 each 1X ONCE MC ; Start 06/17/16 at 09:30; Stop 06/17/16 at 09: 30; Status DC Vancomycin HCl/ Sodium Chloride (Iv Sodium Chloride 0.9% 250ml) 250 ml @ 250 mls/hr Q8H IV Last administered on 06/16/16 10:05; Start 06/16/16 at 10:00; Stop 06/16/16 at 10:36; Status DC Vitals/I & O Vital Sign - Last 24 Hours 06/15/16 06/15/16 06/15/16 06/15/16 19:00 20:00 20:11 22:18 Temp 98.5 98.5 Pulse 109 Resp 22 18 B/P 123/65 Pulse Ox 95 96 98 O2 Delivery Nasal Cannula Nasal Cannula Nasal Cannula O2 Flow Rate 3.0 3.0 3.0 06/15/16 06/15/16 06/16/16 06/16/16 23:00 23:56 03:00 06:27 Temp 98.3 97.7 98.3 97.7 Pulse 105 97 79 81 Resp 20 20 B/P 134/79 134/79 130/58 Pulse Ox 100 93 O2 Delivery Nasal Cannula O2 Flow Rate 3.0 06/16/16 06/16/16 06/16/16 06/16/16 07:07 08:00 08:00 10:04 Temp 98.5 98.5 Pulse 85 Resp 25 24 B/P 133/64 Pulse Ox 98 94 94 O2 Delivery Nasal Cannula Nasal Cannula Nasal Cannula Nasal Cannula O2 Flow Rate 3.0 3.0 3.0 2.0 06/16/16 06/16/16 06/16/16 06/16/16 10:43 11:00 11:04 14:34 Temp 98.2 98.2 Pulse 81 81 Resp 24 24 B/P 127/67 127/67 Pulse Ox 96 98 98 O2 Delivery Nasal Cannula Nasal Cannula Nasal Cannula O2 Flow Rate 3.0 2.0 2.0 06/16/16 06/16/16 15:03 15:04 Temp 98.3 98.3 Resp 22 B/P 129/71 Pulse Ox 95 O2 Delivery Nasal Cannula Nasal Cannula O2 Flow Rate 3.0 2.0 Intake and Output 06/15/16 06/15/16 06/16/16 15:00 23:00 07:00 Intake Total 120 ml 1850 ml Output Total 750 ml Balance 120 ml 1100 ml Nutrition Consultation Dietary Evaluation: Recommendations by RD: Increase Calorie Intake, Protein supplementation Comments: Rec. continue the Boost Plus protein supplement TID Provided pt with a recipe book per her request Expected Outcomes/Goals: meet > 75% est nutr needs no further weight loss Malnutrition Findings: Muscle Mass (Severe): Severe Depletion Body Fat Depletion (Non Severe: Mod to Severe Reduced [employer] Strength: N/A Malnutrition related to morbid: No Weight Status: Underweight Fluid Accumulation (N/A): N/A TRICIA PERRY MD Jun 16, 2016 16:32
--- NOTE | 2016-06-17 12:46 | PDOC ---
Provider Note Provider Note Discharge summary dictated. #[id number] TRICIA PERRY MD Jun 17, 2016 12:46
--- NOTE | 2016-06-17 20:37 | DS ---
DATE OF DISCHARGE: 06/16/2016 REASON FOR ADMISSION TO THE HOSPITAL: Pneumonia, COPD. CONSULTATIONS: 1. Dr. Richter 2. Dr. Sales, Cardiology, 3 . Palliative team. PROCEDURES DONE: Echocardiogram and transfusion. HOSPITAL COURSE: The patient is a 71-year-old female with chronic COPD with hypoxia, on home oxygen and continues to smoke, came with shortness of breath, was found to have pneumonia. The patient was given antibiotics, vancomycin and Zosyn. Also hemoglobin dropped down to 7, was given 1 unit of packed RBC. The patient developed shortness of breath, tachycardia during transfusion. The patient was transferred to the ICU, was seen by Cardiology, Dr. Sales. Echocardiogram showed good left ventricular function. The patient had some confusion improved with time, continued on IV antibiotics and she continued to have tachycardia and was put on Cardizem and it came down nicely. 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 FINAL DIAGNOSES: 1. Pneumonia, community-acquired. 2. Severe chronic obstructive pulmonary disease with hypoxia. 3. Smoking addiction 4. Anemia of chronic disease. 5. Confusion, encephalopathy secondary to pneumonia resolved. 6. Osteoporosis with compression fractures of the spine. 7.Tachycardia after blood transfusion,doubt transfusion reaction. DISPOSITION: Home with hospice, Levaquin and prednisone for outpatient. PROGNOSIS: Is poor. The patient is DNR. TRICIA PERRY MD DR: IVETTE/brandon JOB#: [id number] / [id number] [place]
== END 2016-06-16 18:00 | disposition hospice, home (50) | DRG 189 ==
LOC: ER 22:02 → 5 NORTH 23:35 → CVICU 06-13 14:50 → 2 SOUTH 06-16 13:00
PROVIDERS: ADMIT Internal Medicine; ATTEND Internal Medicine
PROC: 30233N1 Transfusion of Nonautologous Red Blood Cells into Peripheral Vein, Percutaneous Approach (ICD-10-PCS; principal; 2016-06-13)
DX: J96.21 Acute and chronic respiratory failure with hypoxia (principal); J15.6 Pneumonia due to other Gram-negative bacteria; G93.49 Other encephalopathy; J44.1 Chronic obstructive pulmonary disease with (acute) exacerbation; E44.0 Moderate protein-calorie malnutrition; J44.0 Chronic obstructive pulmonary disease with (acute) lower respiratory infection; M80.08XA Age-related osteoporosis with current pathological fracture, vertebra(e), initial encounter for fracture; M48.56XA Collapsed vertebra, not elsewhere classified, lumbar region, initial encounter for fracture; J20.9 Acute bronchitis, unspecified; E87.6 Hypokalemia; Z66 Do not resuscitate; Z51.5 Encounter for palliative care; R00.0 Tachycardia, unspecified; F41.9 Anxiety disorder, unspecified; D50.9 Iron deficiency anemia, unspecified; D63.8 Anemia in other chronic diseases classified elsewhere; F17.200 Nicotine dependence, unspecified, uncomplicated; G89.29 Other chronic pain; J32.9 Chronic sinusitis, unspecified; Y95 Nosocomial condition; Z82.5 Family history of asthma and other chronic lower respiratory diseases; Z99.81 Dependence on supplemental oxygen
CPT/HCPCS: 36415; 36600; 70450; 71010; 71250; 80048; 80053; 80202; 82805; 83605; 83880; 84484; 85007; 85027; 85610; 85651; 85730; 86078; 86850; 86900; 86901; 86920; 87040; 93005; 93306; 94250; 94640; 94760; 96374; J1940; J2543; J2920; J2930; J3370; J7030; J7050; J7512; J7620; P9016; 97116; 99285-25